=== PATIENT | male | born 1960 | race Caucasian/White ===

== ENCOUNTER → 2025-10-06 | Outpatient (CLI) | payer MEDICARE, SELFPAY ==
[2025-10-06 15:52] LABS: Hematocrit 43.8 % (40-54); Hemoglobin 14.6 g/dL (13.0-16.5); Immature Granulocytes Count 0.050 X10^3/uL (0.0-0.0); Mean Corp Hgb Conc 33.3 g/dL (32-36); Mean Corpuscular Volume 89.8 fL (80-94); Mean Platelet Vol. 10.6 fl (6.2-12.0); NRBC Flagged by Analyzer 0 % (0-5); Platelet Count 250 K/mm3 (150-450); RBC Distribution Width CV 12.9 % (11.6-14.6); RBC Distribution Width SD 42.8 fl (35.1-43.9); Red Blood Count 4.88 M/mm3 (4.6-6.2); White Blood Count 8.4 K/mm3 (4.4-11.0)
[2025-10-06 16:37] LABS: Anion Gap 9 (5-15); BUN 18 mg/dL (4-19); BUN/Creat Ratio 20.0 RATIO (10-20); Calcium,Total 9.5 mg/dL (7.6-11.0); Carbon Dioxide 26.2 mmol/L (21.0-32.0); Chloride 101 mmol/L (98-108); Glucose 128 mg/dL (70-99); Potassium 4.7 mmol/L (3.3-5.1); Pro- Brain NATRIURETIC PEPTIDE 101 pg/mL (<=900)
== END | disposition home or self-care (01) ==
PROVIDERS: Referring Provider Nurse Practitioner Gerontology; Visit Provider Nurse Practitioner Gerontology
DX: R06.02 Shortness of breath (principal); R53.83 Other fatigue
CPT/HCPCS: 36415; 80048; 83880; 84443; 85025

== ENCOUNTER → 2025-10-09 | Outpatient (CLI) | payer MEDICARE, SELFPAY ==
--- NOTE | 2025-10-09 06:30 | ECHOCS_ITS ---
Reason For Study Reason For Study: SOB Procedure This was a 2D Doppler, Color Flow transthoracic echocardiogram. Contrast injection was performed. Exam performed in department. Left Ventricle Normal size left ventricle. Left ventricular EF by Ramirez's biplane: 57%. Normal diastolic function. No regional wall motion abnormalities noted. Right Ventricle Normal right ventricle. Normal systolic function. Unable to estimate RV systolic pressure due to insufficient tricuspid regurgitant envelope. Atria The left and right atria are normal. Estimated RA pressure: 8 mmHg. Bubble contrast study is negative for PFO/ASD. Intact atrial septum. Mitral Valve Normal mitral valve. Trace mitral regurgitation. No mitral stenosis. Tricuspid Valve Normal tricuspid valve. No tricuspid stenosis. No tricuspid regurgitation. Aortic Valve Trileaflet aortic valve. No hemodynamically significant aortic stenosis. No aortic regurgitation. Pulmonic Valve Normal pulmonic valve. Trace pulmonic regurgitation. No pulmonic stenosis. Great Vessels Mildly dilated aortic root at 4.1 cm. Normal ascending aorta. Pericardium/Pleural No pericardial effusion. Epicardial fat. Medication Diluted definity 1ml given slow IV push to enhance endocardial definition. MMode/2D Measurements & Calculations LVIDd: 5.2 cm IVSd: 1.3 cm Ao root diam: 3.7 cm LVIDs: 3.7 cm LVPWd: 1.2 cm RVDd: 3.9 cm FS: 28.9 % LAV(MOD-bp): 48.5 ml LVAd ap4: 29.7 cm2 SV(MOD-sp4): 52.1 ml LAV(MOD-bp) Indexed: 19.6 ml/m2 LVLd ap4: 7.5 cm SI(MOD-sp4): 21.0 ml/m2 LAV(MOD-sp2): 39.4 ml EDV(MOD-sp4): 95.1 ml LAV(MOD-sp4): 56.7 ml EDV(sp4-el): 99.6 ml LVAs ap4: 18.1 cm2 LVLs ap4: 6.6 cm ESV(MOD-sp4): 43.0 ml ESV(sp4-el): 42.2 ml EF(MOD-sp4): 54.8 % EF(sp4-el): 57.7 % SV(sp4-el): 57.5 ml LA A4 area: 19.7 cm2 LA dimension(2D): 3.3 cm RA A4 area: 7.4 cm2 TAPSE: 2.4 cm Time Measurements MV dec time: 0.25 sec Doppler Measurements & Calculations MV E max louis: 87.0 cm/sec Lat Peak E' Louis: 7.8 cm/sec Med Peak E' Louis: 8.2 cm/sec MV A max louis: 91.4 cm/sec E/E' lat: 11.1 E/E' med: 10.6 MV E/A: 0.95 MV dec slope: 356.5 cm/sec2 Ao V2 max: 106.3 cm/sec LV V1 max: 89.8 cm/sec Ao max P.5 mmHg LV V1 max P.2 mmHg Ao V2 mean: 80.2 cm/sec Ao mean P.8 mmHg Ao V2 VTI: 23.2 cm PA V2 max: 96.4 cm/sec PI end-d louis: 133.8 cm/sec ECHO/Echo Complete W/ Contrast Interpretation Summary Normal left ventricular systolic function with EF by Ramirez's biplane: 57% Normal left ventricular diastolic function Normal right ventricular systolic function No hemodynamically significant valvular disease Mildly dilated aortic root at 4.1 cm Recommend routine surveillance echocardiogram of aortic root dilation in 1 year . Ordering Physician: Arcelia Puga Performed By: Tania Jones, RASHAAD, RVT
--- OUTSIDE RECORDS SUMMARY | 2025-10-09 06:50 | XMS RPT_ITS | CCD ---
Author Organization [facility] Care Team Providers Care Serologist Name Role Phone GINGERSIDNEYMARYKALEB Unavailable Unavailabl Yonatan Hall Unavailable Unavailable PROVIDER, UNKNOWN Unavailable Unavailable No, PCP Unavailable Unavailable Unavailable Primary Care Provider Unavailabl e Unavailable Primary Care Provider Unavailabl e Unavailable Primary Care Provider Unavailabl e Unavailable Primary Care Provider Unavailabl e JUDI HAY Referring Unavailabl e Unavailable Primary Care Provider Unavailabl e Care Physician, No Primary Primary Care Provider Unavailable Care Physician, No Primary Referring Provider Un available Satnam HVAC PROJECT MANAGER-CJudi Attending Provider Care Physician, No Primary Primary Care Unava ilable Care Physician, No Primary Referring Unava ilable Judi Hay Attending Unavailable Judi Hay Attending Unavailable Nic Lindsay Attending Unavailable Care Physician, No Primary Primary Care Unava ilable Care Physician, No Primary Referring Unava ilable Judi Hay Attending Unavailable JOSEPH, ARIANA Attending Unavailable JOSEPH, ARIANA Attending Unavailable ARIANA RUIZ Attending Unavailable JOSEPH, ARIANA Attending Unavailable TOMASA SALDAÑA Attending Unavailable RADU TAI Attending Unavailable Allergies Allergy Classification Reported Allergen(s) Allergy Type Date of Onset Reaction(s) Facility (14 sources) exenatide; Translations: [EXENATIDE MICROSPHERES] Drug Allergy 7 Itching [facility] Work Phone: (9 sources) Penicillins; Translations: [PENICILLINS] Drug Intolerance 1 Intolerance [facility] (14 sources) rosiglitazone; Translations: [ROSIGLITAZONE MALEATE] Drug Allergy 1 Other: See Comments [facility] (5 sources) Penicillins Drug Intolerance 1 Intolerance [facility] Medications Current Medications Medication Drug Class(es) Dates Sig (Normalized) Sig (Original) Blood-Glucose Meter misc (1 source) Start: 06-01-2022 Blood-Glucose Meter misc Active 0 .Route June 01, 2022 12:00am As directed Blood-Glucose Sensor (Freestyle Kyle 3 Sensor) device (2 sources) Start: 03-19-2023 Blood-Glucose Sensor (Freestyle Kyle 3 Sensor) device Active 0 .Route 1 0 March 19, 2023 9:33pm Diabetes mellitus intermediate project manager (current) use of insulin As directed Start: 09-13-2022 End: 03-19-2023 Blood-Glucose Sensor (Freest yle Kyle 3 Sensor) device Discontinued 0 .Route 2 September 13, 2022 1:00am March 19, 2023 9:33pm Diabetes mellitus halfway (current) use of insulin As directed calcium ascorbate 500 mg oral tablet (1 source) Start: 09-06-2022 take 1 tablet by mouth once daily Ascorbate Calcium (Vitamin C) 500 mg tablet Active 500 mg PO DAILY September 06, 2022 1:00am cholecalciferol 0.05 mg oral capsule (2 sources) Vitamin D Start: 09-06-2022 End: 08-01-2024 take 1 capsule by mouth once daily Cholecalciferol (Vitamin D3) 50 mcg (2,000 unit) capsule Active 50 ug PO daily 90 June 25, 2024 12:00am Vitamin D insufficiency Vitamin D deficiency, unspecified ciprofloxacin 3 mg/ml / dexamethasone 1 mg/ml otic suspension (1 source) Corticosteroid, Quinolone Antimicrobial Start: 07-01-2025 End: 07-08-2025 ciprofloxacin-dexAM ETHasone (CiproDEX) otic suspension Indications: Other infective acute otitis externa of right ear Administer 4 drops into affected ear(s) 2 times daily for 7 days. 7.5 mL 07/01/2025 07/08/2025 Active DULoxetine 20 mg delayed release oral capsule (1 source) Serotonin and Norepinephrine Reuptake Inhibitor Start: 03-23-2025 take 1 capsule by mouth twice daily Duloxetine 20 mg capsule,delayed release(DR/EC) Active 20 mg PO TWICE A DAY 60 5 March 23, 2025 12:00am Depression Depression, unspecified fenofibrate 160 mg oral tablet (19 sources) Peroxisome Proliferator Receptor alpha Agonist Start: 06-01-2022 End: 12-02-2024 take 1 tablet by mouth once daily Fenofibrate 160 mg tablet Active 160 mg PO DAILY 90 3 December 02, 2024 10:15am High blood cholesterol Pure hypercholesterolemi a, unspecified Start: 03-22-2021 End: 03-17-2022 Fenofibrate (LOFIBRA) 160 mg tablet Indications: Mixed hyperlipidemia TAKE 1 TABLET DAILY 90 tablet 3 03/17/2022 Active Comment on above: TAKE 1 TABLET DAILY lisinopril 20 mg oral tablet (6 sources) Angiotensin Converting Enzyme Inhibitor Start: End: take 1 tablet by mouth once daily Lisinopril 20 mg tablet Active 20 mg PO DAILY 90 3 April 20, 2025 8:14am 0.25 mg, 0.5 mg dose 1.5 ml semaglutide 1.34 mg/ml pen injector (5 sources) Start: Semaglutide (Ozempic) 0.25 mg or 0.5 mg(2 mg/1.5 mL) pen injector Active 0.25 mg SC EVERY WEEK June 03, 2025 4:40pm Start: 06-03-2025 End: 06-03-2025 Semaglutide (Ozempic) 0.25 m g or 0.5 mg(2 mg/1.5 mL) pen injector Discontinued 0.5 mg SC EVERY WEEK June 03, 2025 12:00am June 03, 2025 4:40pm Start: 06-05-2022 End: 09-06-2022 inject 0.25 mg by subcutaneous injection every week, then inject 0.5 mg by subcutaneous injection every week Semaglutide (Ozempic) 0.25 mg or 0.5 mg(2 mg/1.5 mL) pen injector Discontinued 0.5 mg SC EVERY WEEK 1.5 3 June 05, 2022 12:00am September 06, 2022 9:22am Diabetes mellitus intermediate project manager (current) use of insulin 0.25 mg x4 weeks for initiate titration. After 4 weeks, may increase to 0.5 mg subcutaneously once weekly. Start: 06-01-2022 End: 06-05-2022 Semaglutide (Ozempic) 0.25 m g or 0.5 mg(2 mg/1.5 mL) pen injector Discontinued 0.25 mg SC EVERY WEEK 4.5 1 June 01, 2022 3:24pm June 05, 2022 12:28pm Diabetes mellitus Type 2 diabetes mellitus without complications for 4 doses simvastatin 20 mg oral tablet (19 sources) HMG-CoA Reductase Inhibitor Start: 06-01-2022 End: 11-27-2024 take 1 tablet by mouth once daily in the evening Simvastatin 20 mg tablet Active 20 mg PO EVERY EVENING 90 November 27, 2024 9:34am High blood cholesterol Pure hypercholesterolemia, unspecified Start: 03-22-2021 End: 03-17-2022 simvastatin (ZOCOR) 20 mg ta blet Indications: Mixed hyperlipidemia TAKE 1 TABLET DAILY AT BEDTIME 90 tablet 3 03/17/2022 Active Comment on above: TAKE 1 TABLET DAILY AT BEDTIME 24 hr verapamil hydrochloride 240 mg extended release oral capsule (17 sources) Calcium Channel Matias Start: 12-24-2024 take 1 capsule by mouth once daily Verapamil 240 mg capsule,ext rel. pellets 24 hr Active 240 mg PO daily 90 December 24, 2024 5:41pm Start: 03-12-2023 verapamil SR ( CALAN SR) 240 mg CR tablet Indications: Hypertension TAKE 1 TABLET TWICE A DAY 180 tablet 3 03/12/2023 Active Start: 06-01-2022 End: 12-24-2024 take 1 capsule by mouth twice daily Verapamil 240 mg capsule,ext rel. pellets 24 hr Discontinued 240 mg PO TWICE A DAY 180 3 September 27, 2024 10:12pm December 24, 2024 5:42pm Start: 03-22-2021 End: 03-17-2022 verapamil SR (CALAN SR, ISOP TIN SR) 240 mg CR tablet Indications: Hypertension TAKE 1 TABLET TWICE A DAY 180 tablet 3 03/17/2022 Active Comment on above: TAKE 1 TABLET TWICE A DAY vitamin e 90 mg oral capsule (1 source) Start: 09-06-2022 take 1 capsule by mouth once daily Vitamin E (Dl, Acetate) 90 mg (200 unit) capsule Active 90 mg PO DAILY September 06, 2022 1:00am Completed/Discontinued Medications Medication Drug Class(es) Dates Sig (Normalized) Sig (Original) gabapentin 300 mg oral capsule (13 sources) Anti-epileptic Agent Start: 06-01-2022 End: 03-05-2024 take 1 capsule by mouth three times daily Gabapentin 300 mg capsule Discontinued 300 mg PO THREE TIMES A DAY June 01, 2022 12:00am March 05, 2024 9:43am Start: 03-23-2022 End: 06-21-2022 take 1 tablet by mouth three times daily gabapentin (NEURONTIN) 600 mg tablet Indications: Painful diabetic neuropathy (HCC) Take 1 tablet by mouth three times daily for 90 days. 270 tablet 0 03/23/2022 Active Start: 02-22-2021 End: 02-22-2022 gabapentin (NEURONTIN) 600 m g tablet Indications: Painful diabetic neuropathy (HCC) TAKE 1 TABLET THREE TIMES A DAY 270 tablet 3 02/22/2021 Active Comment on above: TAKE 1 TABLET THREE TIMES A DAY Take 1 tablet by mady th three times daily for 90 days. Insulin Degludec (Tresiba Flextouch U-200) 200 unit/mL (3 mL) insulin pen (1 source) Start: 12-21-2022 End: 12-22-2022 Insulin Degludec (Tresiba Flextouch U-200) 200 unit/mL (3 mL) insulin pen Discontinued 100 U SC DAILY 15 December 21, 2022 1:00am December 22, 2022 9:48am Diabetes mellitus halfway (current) use of insulin 3 ml insulin isophane, human 100 unt/ml pen injector (20 sources) Start: 11-15-2023 End: 01-02-2024 Insulin Nph Isoph U-100 Human (Humulin N Nph Insulin Kwikpen) 100 unit/mL (3 mL) insulin pen Discontinued 60 U SC TWICE A DAY 36 5 November 15, 2023 1:00am January 02, 2024 4:30pm Diabetes mellitus intermediate project manager (current) use of insulin Start: 11-02-2022 End: 01-02-2024 Insulin Nph Isoph U-100 Keeley n 100 unit/mL suspension Discontinued 60 U SC TWICE A DAY 108 March 12, 2023 9:58am January 02, 2024 4:30pm Diabetes mellitus halfway (current) use of insulin Start: 09-07-2022 End: 11-02-2022 Insulin Nph Isoph U-100 Keeley n 100 unit/mL suspension Discontinued 50 U SC TWICE A DAY 90 September 07, 2022 12:32pm November 02, 2022 8:47am Diabetes mellitus halfway (current) use of insulin Start: 06-01-2022 End: 09-07-2022 Insulin Nph Isoph U-100 Keeley n 100 unit/mL suspension Discontinued 25 U SC EVERY MORNING June 01, 2022 12:00am September 07, 2022 11:25am Start: 09-27-2021 End: 09-04-2022 inject 28 [IU] by subcutaneous injection at breakfast, then inject 50 [IU] by subcutaneous injection at bedtime insulin NPH injection (HumuLIN N,NovoLIN N) Indications: Type 2 diabetes mellitus with retinopathy, with long-term current use of insulin, macular edema presence unspecified, unspecified laterality, unspecified retinopathy severity (HCC) INJECT 28 UNITS UNDER THE SKIN AT BREAKFAST AND 50 UNITS AT BEDTIME 80 mL 0 09/04/2022 Active Comment on above: INJECT 28 UNITS UNDE R THE SKIN AT BREAKFAST AND 50 UNITS AT BEDTIME 3 ml insulin, regular, human 500 unt/ml pen injector (18 sources) Insulin Start: 01-02-2024 End: 12-24-2024 Insulin Regular Hum U-500 Conc (Humulin R U-500 (Conc) Kwikpen) 500 unit/mL (3 mL) insulin pen Discontinued 100 U SC THREE TIMES A DAY 18 January 02, 2024 12:00am December 24, 2024 1:50pm Diabetes mellitus intermediate project manager (current) use of insulin Start: 09-07-2022 End: 03-05-2024 Insulin Regular Human 100 un it/mL solution Discontinued 30 U SC THREE TIMES A DAY 81 1 November 02, 2022 8:47am March 05, 2024 9:44am Diabetes mellitus halfway (current) use of insulin Start: 06-01-2022 End: 09-07-2022 Insulin Regular Human 100 un it/mL solution Discontinued 18 U SC THREE TIMES A DAY June 01, 2022 12:00am September 07, 2022 11:25am 18 before breakfast, 12 at lunch, 20 at supper Start: 09-27-2021 insulin regula r human (HUMULIN R REGULAR U-100 INSULN) 100 unit/mL injection Indications: 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, with long-term current use of insulin, unspecified retinopathy severity (HCC) INJECT 20 UNITS UNDER THE SKIN BEFORE BREAKFAST, 15 UNITS AT LUNCH AND 20 UNITS AT SUPPER 50 mL 3 09/27/2021 Active Comment on above: INJECT 20 UNITS UNDE R THE SKIN BEFORE BREAKFAST, 15 UNITS AT LUNCH AND 20 UNITS AT SUPPER 24 hr metFORMIN hydrochloride 500 mg extended release oral tablet (15 sources) Biguanide Start: 2 End: 2 take 1 tablet by mouth twice daily Metformin 500 mg tablet extended release 24 hr Discontinued 500 mg PO TWICE A DAY June 01, 2022 12:00am June 07, 2022 4:06pm Start: 03-08-2021 End: 03-03-2022 metFORMIN ER (GLUCOPHAGE XR) 500 mg 24 hr tablet TAKE 2 TABLETS TWICE A DAY 360 tablet 3 03/03/2022 Active Comment on above: TAKE 2 TABLETS TWICE A DAY Multivitamin (Daily Multi-Vitamin) tablet (1 source) Start: 2 End: 3 Multivitamin (Daily Multi-Vitamin) tablet Discontinued 1 {tbl} PO DAILY September 06, 2022 1:00am December 14, 2022 9:24am sertraline 25 mg oral tablet (1 source) Serotonin Reuptake Inhibitor Start: 4 End: 5 take 1 tablet by mouth once daily Sertraline 25 mg tablet Discontinued 25 mg PO daily 20 03June 25, 2024 12:00am December 24, 2024 5:41pm Depression Depression, unspecified Problems Active Problems Problem Classification Problem Date Documented Date Episodic/Chronic Cataract (3 sources) Senile cataract; Translations: [Unspecified age-related cataract] 08-21-2023 Chronic Chronic ulcer of skin (1 source) Pressure ulcer of unspecified ankle, unspecified stage; Translations: [Controlled type 2 diabetes mellitus with pressure ulcer of ankle (HCC)] Onset: 09-10-2023 Chronic Diabetes mellitus with complications (20 sources) Type 2 diabetes mellitus; Translations: [Type 2 diabetes mellitus with unspecified diabetic retinopathy without macular edema] Onset: 08-22-2002 10-06-2018 Chronic Diabetes mellitus without complication (3 sources) Type 2 diabetes mellitus without complications; Translations: [Diabetes mellitus] Onset: 09-10-2023 06-01-2022 Chronic Disorders of lipid metabolism (16 sources) Mixed hyperlipidemia; Translations: [Mixed hyperlipidemia] Onset: 01-11-2011 01-11-2011 Chronic Essential hypertension (17 sources) Essential hypertension; Translations: [Essential (primary) hypertension] Onset: 01-11-2011 Resolved: 04-24-2016 11-19-2016 Chronic Mood disorders (1 source) Depressive disorder; Translations: [Depression] 07-11-2024 Chronic Mood disorders (1 source) Mood disorders; Translations: [Depression, unspecified] Onset: 06-24-2025 Nutritional deficiencies (2 sources) Vitamin D deficiency; Translations: [Vitamin D deficiency, unspecified] Onset: 06-24-2025 06-25-2024 Chronic Other aftercare (4 sources) halfway (current) use of insulin; Translations: [Type 2 diabetes mellitus with retinopathy and macular edema, with long-term current use of insulin, unspecified laterality, unspecified retinopathy severity (HCC)] Onset: 09-10-2023 Episodic Other ear and sense organ disorders (6 sources) Sensorineural hearing loss, bilateral; Translations: [Sensorineural hearing loss, bilateral] Onset: 02-04-2025 01-07-2025 Chronic Other ear and sense organ disorders (1 source) Hearing disorder; Translations: [Unspecified hearing loss, unspecified ear] 06-01-2022 Chronic Other ear and sense organ disorders (1 source) Sensorineural hearing loss, bilateral; Translations: [Sensorineural hearing loss, bilateral] Onset: 02-04-2025 Chronic Other ear and sense organ disorders (1 source) Impacted cerumen in right ear; Translations: [Impacted cerumen, right ear] 07-01-2025 Episodic Other ear and sense organ disorders (1 source) Acute infective otitis externa; Translations: [Other infective otitis externa, right ear] 07-01-2025 Episodic Other nutritional; endocrine; and metabolic disorders (13 sources) Obese class II; Translations: [Obesity, unspecified] Onset: 09-26-2021 09-26-2021 Chronic Other nutritional; endocrine; and metabolic disorders (2 sources) Obesity, unspecified; Translations: [Lifelong obesity] Onset: 09-10-2023 Chronic Other nutritional; endocrine; and metabolic disorders (1 source) Body mass index 30+ - obesity; Translations: [Obesity, unspecified] 06-01-2022 Chronic Retinal detachments; defects; vascular occlusion; and retinopathy (2 sources) History of occlusion of central retinal vein; Translations: [Central retinal vein occlusion, unspecified eye, stable] Onset: 03-20-2012 10-17-2021 Chronic Spondylosis; intervertebral disc disorders; other back problems (1 source) Back problem; Translations: [Dorsopathy, unspecified] 06-01-2022 Episodic Unclassified (2 sources) Audiology Services; Translations: [Audiology Services] Onset: 03-11-2025 Past or Other Problems Problem Classification Problem Date Documented Da te Episodic/Chronic Conditions associated with dizziness or vertigo (3 sources) Benign paroxysmal positional vertigo; Translations: [Benign paroxysmal vertigo, right ear] Onset: 01-07-2025 01-07-2025 Episodic Genitourinary symptoms and ill-defined conditions (13 sources) Microalbuminuria; Translations: [Proteinuria, unspecified] Onset: 11-11-2019 11-11-2019 Episodic Nonspecific chest pain (2 sources) Chest pain; Translations: [Chest pain, unspecified] Onset: 08-01-2024 06-25-2024 Episodic Other connective tissue disease (4 sources) Complete rotator cuff tear or rupture of left shoulder, not specified as traumatic; Translations: [Other shoulder lesions, left shoulder] Onset: 10-19-2017 Episodic Other nervous system disorders (12 sources) History of occlusion of central retinal vein; Translations: [Personal history of other diseases of the nervous system and sense organs] Onset: 03-20-2012 10-17-2021 Episodic Other non-traumatic joint disorders (1 source) Hip pain; Translations: [Pain in right hip] Onset: 04-23-2014 Resolved: 11-19-2016 11-19-2016 Episodic Other nutritional; endocrine; and metabolic disorders (4 sources) Body mass index 40+ - severely obese; Translations: [Morbid (severe) obesity due to excess calories] Onset: 03-25-2021 Resolved: 02-16-2022 03-25-2021 Chronic Results Test Name Value Interpretation Reference Range Facility Office Visiton 07-01-2025 Follow-up visit [id number] Ravi Lizarraga 1960 M Date Provider Department Center 07/01/2025 [facility] None No family history on file Level of Service:55657 UT OFFICE/OUTPATIENT NEW LOW MDM 30 MINUTES Reason for Visit and Comments: New Patient [542] - Right [facility] Progress Noteon 07-01-2025 Progress Note [facility] - [address] [facility] [address] Dept: [phone] Dept Loc: [phone] Assessment and Recommendations Edita was seen today for new patient. Diagnoses and all orders for this visit: Other infective acute otitis externa of right ear (Primary) - ciprofloxacin-dexAMETHasone (CiproDEX) otic suspension; Administer 4 drops into affected ear(s) 2 times daily for 7 days. Right ear impacted cerumen Right ear cerumen impaction successfully removed with instrumentation. Patient reported improvement in aural fullness and hearing. His right EAC appears irritated with bloody debris. Recommend treatment with Ciprodex and follow up if he develops any right ear symptoms. Continue to follow with audiology for management of hearing aids. Subjective: Patient: Edita Lizarraga is a 64 y.o. male HPI Edita Lizarraga is a 64 y.o. male who presents to clinic today for evaluation of right ear concerns. He was seen by audiology today for hearing aid maintenance and was noted to have abnormal findings in right EAC. He denies any ear pain or drainage but has sensation that right ear is plugged and his right sided hearing aid has not been working as well. No issues with the left ear. He denies any other concerns today. Review of Systems 14 point review of systems completed and all negative except as noted in HPI. Allergies[1] Current Medications[2] Medical History[3] Surgical History[4] Family History[5] Social History Tobacco Use Smoking status: Not on file Smokeless tobacco: Not on file Substance Use Topics Alcohol use: Not on file Objective: There were no vitals taken for this visit. Physical Exam General: Patient is not in acute distress. Appearance: Patient is well-developed. Eyes: Conjunctiva/sclera: Conjunctivae normal. Pupils: Pupils are equal, round, and reactive to light. HENT: Ears: Microscope brought in for exam. Bilateral external ears normal. Right EAC impacted with cerumen/bloody debris, unable to visualize TM. Left EAC normal, TM clear with normal middle ear landmarks. See procedure note below. Pulmonary: Effort: Pulmonary effort is normal. No respiratory distress. Breath sounds: No stridor. Musculoskeletal: Head: Normocephalic and atraumatic. Neck: Full passive range of motion without pain, neck supple. Skin: General: Skin is warm and dry. Findings: No erythema or rash. Neurological: Cranial Nerves: No cranial nerve deficit. Sensory: No sensory deficit. Coordination: Coordination normal. Extremities: No significant peripheral edema or varicosities Psychiatric: Mood and Affect: Mood and affect normal. Cognition and Memory: Cognition and memory normal. Procedure Note: Cerumen Removal Right tympanic membranes could not be visualized due to cerumen impaction. Verbal informed consent obtained from the patient to proceed with bedside cerumen disimpaction. The microscope was brought into the field for the procedure. The cerumen was removed from the right side using a looped curette as well as suction. Once the cerumen was removed the R TM was visualized and was normal. The right EAC was noted to have mild irritation and bloody debris. Patient tolerated the procedure well. [1] No Known Allergies [2] Current Outpatient Medications Medication Sig Dispense Refill ciprofloxacin-dexAMETHasone (CiproDEX) otic suspension Administer 4 drops into affected ear(s) 2 times daily for 7 days. 7.5 mL 0 No current facility-administered medications for this visit. [3] No past medical history on file. [4] No past surgical history on file. [5] No family history on file. Normal [facility] Progress Note HEARING AID CHECK/MA INTENANCE Name: Edita Lizarraga : 1960 Age: 64 y.o. Edita Lizarraga was seen in Audiology today for a hearing aid check/maintenance appointment. Programmed in [place] [address]. Hearing Aid Information: Right: Layla [email or web address] 12 HAZEL-RT SN: [id number] 4M immunology teacher 7mm open dome Left: Layla [email or web address] 12 HAZEL-RT SN: [id number] 4M immunology teacher 7mm open dome Basket Hand Braider: Standard 2.0 SN: [id number] Warranty: 05/05/2028 Chief Complaint: Right hearing aid is fading in/out and he has been struggling to hear lately. He also noticed some blood in his right ear. Visit Notes: Otoscopic Evaluation: External ear exam: Normal Internal ear exam: Right Ear: Abnormal red flesh like obstruction in external ear canal. Could not visualize tympanic membrane. Left Ear: Normal external ear canal. Tympanic membrane intact with normal landmarks. Recommended patient see an ENT provider, he was able to see PAXTON Jean, same day. See separate note for appointment details. Programming Ran self check and results showed the right immunology teacher failed and left microphone failed. Cleaned both hearing aids by replacing domes, filters, brushing/vacuuming microphone ports. Subjective listening check improved for the left hearing aid, no change in right hearing aid. Replaced right immunology teacher (under warranty) and hearing aid is now working. Ran self check again and all components passed. Reviewed brushing the microphones with patient (he was brushing the two side microphones but not the top one). I will keep him on our [place] list and let him know if/when we are scheduling other days to go out to the office. Recommendations: Follow up as needed. German Valverde, [place]-A Clinical Doctor of Audiology [facility] Endocrinology Visit Reporton 06-24-2025 Endocrinology Visit Report [facility] [address] [place] [address] OFFICE VISIT Date of Service: 06/24/25 MR#: [id number] Acct: [id number] Name: EDITA LIZARRAGA Rep #: [id number] : 1960 Provider: MELODIE claros Age/Sex: 64/M Location: [facility] Status: Signed Intake Vital Signs 12/24/24 11:43 06/24/25 11:42 Height 6 ft 6 ft Weight: 289 lb 291 lb BMI 39.2 39.4 BP 130/78 H 149/75 H Blood Pressure Location Lt brachial Lt brachial Position Sitting Sitting Pulse 84 80 Pulse Source Monitor Monitor Pulse Oximetry (%) 94 93 Oxygen Delivery Method room air room air Intake Visit Reasons: 6 M FU Chief Complaint: f/u diabetes [address] Required: No Accompanied by: Is patient in pain?: No Allergies No Known Drug Allergies Allergy (Verified 06/24/25 11:42) Other Medications ???Medication ???Instructions ???Recorded ???Confirmed ???Type blood-glucose meter 06/01/22 06/24/25 History insulin syr/ndl U100 half enoch 0.5 06/01/22 06/24/25 History mL 30 gauge x 5/16 insulin syringe-needle U-100 1 mL #150 ea 07/12/22 06/24/25 Rx 31 gauge x 5/16 (BD Insulin Syringe Ultra-Fine) blood sugar diagnostic (OneTouch #100 ea 08/03/22 06/24/25 Rx Verio test strips) ascorbate calcium (vitamin C) 500 500 mg PO DAILY 09/06/22 06/24/25 History mg tablet vitamin E (dl, acetate) 90 mg (200 90 mg PO DAILY 09/06/22 06/24/25 History unit) capsule blood-glucose sensor (FreeStyle #1 ea 03/19/23 06/24/25 Rx Kyle 3 Sensor device) cholecalciferol (vitamin D3) 50 50 mcg PO QDAY #90 caps 06/25/24 0 06/24/25 Rx mcg (2,000 unit) capsule simvastatin 20 mg tablet 20 mg PO QPM #90 tabs 11/27/2401/13 Rx fenofibrate 160 mg tablet 160 mg PO DAILY #90 tabs 12/02/24 06/24/25 Rx verapamil 240 mg 24 hr 240 mg PO QDAY #90 caps 12/24/24 0 06/24/25 Rx capsule,extended release duloxetine 20 mg capsule,delayed 20 mg PO BID #60 caps 03/23/2501/13 Rx release lisinopril 20 mg tablet 20 mg PO DAILY #90 tabs 04/20/25 0 06/24/25 Rx semaglutide 0.25 mg or 0.5 mg (2 0.25 mg subcut QWEEK 06/03/2501/13 History mg/1.5 mL) subcutaneous pen injector (Ozempic) Have you fallen in the past year?: No PFSH Medical History Depression Macular edema 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 Dry eye syndrome of both eyes Diabetic macular edema, both eyes High cholesterol High blood pressure Hearing problem Diabetes mellitus Cataract Back problem Surgical History History of shoulder surgery History of elbow surgery Previous back surgery Family History Father Hypertension Heart disease Myocardial infarction Social History Smoking Status: Former smoker alcohol intake: current substance use type: does not use caffeine: Yes frequency: daily HPI HPI Chief Complaint: f/u diabetes Details: EDITA LIZARRAGA, is a 64 M who presents to the office today for evaluation and management of diabetes. A1C today is 6.8%, consistent with 12/24/24. He has gained 2 lbs since that time- this is upsetting to him. Currently taking N 35 u QHS, Tresiba 44 u once daily, Novolog 35 u TIDCM, and Ozempic 0.5 mg qweek- tolerating well. CGM tracings reviewed- he is having occasional post meal elevations. He is having occasional lows between meals. He denies any significant episode of hypoglycemia that has required assistance from others. BP is controlled. Currently taking lisinopril 20 mg once daily and verapamil 240 mg once daily. He is taking a daily statin. He has chronic depression. He has been on multiple antidepressants without improvement in symptoms. He has retinopathy that is significantly impacting his quality of life, this is a big contributor to his depression. He is due for labs. Denies any acute concerns. ROS Const Constitutional: No fatigue, fever(s) or weight change Cardio Cardiology: No chest pain at rest, chest pain with exertion or shortness of breath Psych Psychiatric: No anxiety and Positive for depression Genitourinary Male: No difficulty urinating, urinary incontinence, urinary frequency, urinary urgency, urinary hesitancy or urinary retention Skin Skin: No rash Endo Endocrine: No fatigue or weight change Exam Const General: cooperative, healthy appearing, comfortable and no acute distress Nutritional Appearance: obese Orientation: alert, awake and oriented x3 HENMT Head: normal to inspection Ears: hearing grossly normal bilaterally Nose: stemhole borer and topper (more content not included)... Normal [facility] 37on 03-11-2025 37 Cawthorne Exercises These exercises are to be carried out for 15 minutes twice a day, increasing to 30 minutes. Master one task prior to moving to the next task. Eye Exercises: Look up, then down - at first slowly, then quickly - 20 times Look from one side to the other - at first slowly, then quickly - 20 times Focus on finger at arm's length moving one foot closer and back again - 20 times Head Exercises: Bend head forward, then backward with eyes open - slowly, later quickly - 20 times Turn head from one side to other side - slowly, then quickly - 20 times As dizziness decreases, these exercises should be done with eyes closed. Sitting: While sitting shrug shoulders - 20 times Turn shoulders to right, then to left - 20 times Bend forward and crab picker objects from ground and sit up - 20 times Standing: Change from sitting to standing and back again - 20 times with eyes open Repeat with eyes closed Throw a small rubber ball from hand to hand above eye level. Throw ball from hand to hand under one knee Moving About: Walk across room with eyes open, then closed - 10 times Walk up and down a slope with eyes open, then closed - 10 times Walk up and down steps with eyes open, then closed - 10 times Any game involving stooping, stretching, and turning (ex: bowling, basketball) is good Note: The earlier and more regularly these exercises are practiced, the faster and more likely complete the recovery. References Denise ORELLANA. The rationale and technique of head exercises in the treatment of vertigo. Acta Otorhinolaryngol [place]. 1979;3(3):370-84. Marc MCKNIGHT. Canalith repositioning maneuver. Otolaryngol Head Neck Surg. 1994;111(5):691-692. [facility] Progress Noteon 03-11-2025 Progress Note HEARING AID CHECK/MA INTENANCE Name: Edita Lizarraga : 1960 Age: 64 y.o. Edita Lizarraga was seen in Audiology today for a hearing aid check/maintenance appointment. Hearing Aid Information: Right: Layla Prajapati AI 12 HAZEL-RT SN: [id number] 4M immunology teacher 7 mm open dome Left: Layla Prajapati AI 12 HAZEL-RT SN: [id number] 4M immunology teacher 7 mm open dome Basket Hand Braider: [employer] Basket Hand Braider 2.0 SN: [id number] Warranty: 05/05/2028 Programmed: [facility] CHIEF COMPLAINT: No main concerns VISIT NOTES: He is happy with the devices and the sound quality. He states he is hearing things that he hasn't in some time and that he is doing well with them. Demonstrated how to change wax guards and domes to patient and his . Due to vision concerns, recommended for him to follow up routinely for maintenance and we can change the wax guards/domes in office. Provided them with extra supplies to have at home should they need to change them. He is still experiencing some issues with dizziness, particularly when laying down flat. Provided him with Cawthorne exercises for him to try at home. Recommended referral for vestibular therapy and/or VNG testing but he is not interested in that at this time. He will be sent some resources for him to try at home to help with the dizziness. RECOMMENDATIONS: Follow up in 3-4 months for routine maintenance or sooner if needed. He will be contacted to set up that appointment once days in [facility] have been established. Kirt Maravilla. [place]ilda, - Clinical Doctor of Audiology Board Certified, Tinnitus Management [facility] 36on 02-25-2025 36 . [facility] Progress Noteon 02-18-2025 Progress Note HEARING AID FITTING Edita Lizarraga was seen today to be fit with new hearing aid(s). DEVICE INFORMATION: Hearing Aid Information: Right: Layla Victorina AI 12 HAZEL-RT SN: [id number] 4M immunology teacher 7 mm open dome Left: Layla Victorina AI 12 HAZEL-RT SN: [id number] 4M immunology teacher 7 mm open dome Basket Hand Braider: [employer] Basket Hand Braider 2.0 SN: [id number] Warranty: 05/05/2028 Programmed: [facility] TRIAL PERIOD END DATE: 04/20/2025 FITTING AND FINE TUNING: Initial physical fit was good bilaterally. Aid(s) were not verified via real ear speechmapping measures using the prescriptive fitting formula. Set to experience level #3. Increased overall gain by 1 click and then decreased low frequency gain by 3 clicks due to report that his own voice was too echoy. Programs created and explained when and how to utilize: Normal RiGHT [employer]RA[employer]N MED[employer]A Manual controls were set for on board use of volume/program changes: RIGHT: volume control LEFT: program control Edita Lizarraga was pleased with the sound quality of the aids following programming adjustments. COUNSELING/EDUCATION: Mr. Lizarraga was educated on care and use of aid(s) and the 3 years loss and damage warranty and 3 years periodicals library assistant repair warranty. He was given appropriate cleaning tools and education manual/s provided by the periodicals library assistant. Edita Lizarraga was able to demonstrate proper insertion/removal of hearing aid(s), insertion/removal of the battery OR insertion/removal from flight engineer performance qualified, cleaning techniques, and use of VC &/or program button . Devices were successfully to connected Edita Lizarraga Bluetooth enabled device ([employer]). [employer] antolin was downloaded and hearing aid(s) were successfully paired. Reviewed use of antolin for volume/program changes and streaming capabilities. Provided patient with periodicals library assistant's technical support number to contact if any issues arise. Realistic expectations and effective communication strategies were reviewed. Xosw-fs-vusy at a 4-6 foot maximum distance Reduced background noise Speech at normal volume and slower rate Good lighting IMPRESSIONS/RECOMMENDATIONS: Edita Lizarraga expressed understanding to all topics discussed and reported good fit and sound quality to devices. Edita Lizarraga was schedule for a follow up appointment in 3 weeks but was instructed to call/return sooner if needed. Patient paid remaining balance of $1390.00 today. Kirt Maravilla. [place]-Nilda, -TM Clinical Doctor of Audiology Board Certified, Tinnitus Management [facility] 01-29-2025 36 Sent Work [employer] message to schedule appt in [facility] on the . [facility] 01-27-2025 36 Name of Caller: Earl robles Contact Reason for Appointment: Pt states he would like to be seen sooner then his appt. Please advise. Office Name: Ent [facility] 01-07-2025 37 The below company(ie s) are credentialed through various insurance plans to provide hearing aids for patients. Please contact the number(s) below if interested in pursuing hearing aids to determine if they are in network with your insurance. 1. [employer] [place] - Dr. Gary Joyce Location: [address] [place] [address], [address] [place], [place] [id number] [facility] Location: [address] [place] [id number] Hearing aid services are offered at [facility] although we are not credentialed to bill insurance for hearing aids. Hearing aids and services are only billable to the patient. Audiologists at [facility] are available to answer any questions at [phone], option 5. Benign paroxysmal positional vertigo (BPPV) is the most common disorder of the inner ear?s vestibular system, which is a vital part of maintaining balance. BPPV is benign, meaning that it is not life-threatening nor generally progressive. BPPV produces a sensation of spinning called vertigo that is both paroxysmal and positional, meaning it occurs suddenly and with a change in head position. Why does BPPV cause vertigo? The vestibular organs in each ear include the utricle, saccule, and three semicircular canals. The semicircular canals detect rotational movement. They are located at right angles to each other and are filled with a fluid called endolymph. When the head rotates, endolymphatic fluid lags behind because of inertia and exerts pressure against the cupula, the sensory receptor at the base of the canal. The receptor then sends impulses to the brain about the head?s movement. BPPV occurs as a result of otoconia, tiny crystals of calcium carbonate that are a normal part of the inner ear?s anatomy, detaching from the otolithic membrane in the utricle and collecting in one of the semicircular canals. When the head is still, gravity causes the otoconia to clump and settle. When the head moves, the otoconia shift. This stimulates the cupula to send false signals to the brain, producing vertigo and triggering nystagmus (involuntary eye movements). Symptoms In addition to vertigo, symptoms of BPPV include dizziness (lightheadedness), imbalance, difficulty concentrating, and nausea. Activities that bring on symptoms can vary in each person, but symptoms are precipitated by changing the head?s position with respect to gravity. With the involvement of the posterior semicircular canal in classic BPPV, common problematic head movements include looking up, or rolling over and getting out of bed. BPPV may be experienced for a very short duration or it may last a lifetime, with symptoms occurring in an intermittent pattern that varies by duration, frequency, and intensity. It is not considered to be intrinsically lifethreatening. However, it can be tremendously disruptive to a person?s work and social life, as well as pose a health hazard due to an increased risk of falls associated with dizziness and imbalance. Causes BPPV is the most common vestibular disorder; 2.4% of all people will experience it at some point in their lifetimes BPPV accounts for at least 20% of diagnoses made by physicians who specialize in dizziness and vestibular disorders, and is the cause of approximately 50% of dizziness in older people. The most common cause of BPPV in people under age 50 is head injury and is presumably a result of concussive force that displaces the otoconia. In people over age 50, BPPV is most commonly idiopathic, meaning it occurs for no known reason, but is generally associated with natural age-related degeneration of the otolithic membrane. BPPV is also associated with migraine and ototoxicity. Viruses affecting the ear (such as those causing vestibular neuritis) and M?ni?re?s disease are significant but unusual causes. Occasionally BPPV follows surgery as a result of the trauma on the inner ear during the procedure combined with a prolonged supine (laying down face-up) position. BPPV may also develop after long periods of inactivity. Diagnosis BPPV is diagnosed based on medical history, physical examination, the results of vestibular and auditory (hearing) tests, and possibly lab work to rule out other diagnoses. Vestibular tests include the Denise-Hallpike maneuver and the Supine Roll test. These tests allow the provider to observe the nystagmus elicited in response to a change in head position. The problematic semicircular canal can be identified based on the characteristics of the observed nystagmus. A physician may also order radiographic imaging such as a magnetic resonance imaging scan (MRI) to rule out other problems such as a stroke or brain tumor, but such scansare not helpful is in diagnosing BPPV. Treating BPPV with in-office particle repositioning head maneuvers Recommended treatment for most forms of BPPV employs particle repositioning head karly (more content not included)... Normal [facility] Endocrinology Visit Reporton 12-24-2024 Endocrinology Visit Report [facility] [address] [place] [address] OFFICE VISIT Date of Service: 12/24/24 MR#: [id number] Acct: [id number] Name: EDITA LIZARRAGA Rep #: [id number] : 1960 Provider: MELODIE claros Age/Sex: 64/M Location: [facility] Status: Signed Intake Vital Signs 06/25/24 09:00 08/01/24 09:40 12/24/24 11:43 Height 6 ft 6 ft 6 ft Weight: 294 lb 289 lb BMI 39.9 39.2 BP 146/81 H 130/78 H Blood Pressure Location Lt brachial Lt brachial Position Sitting Sitting Pulse 88 84 Pulse Source Monitor Monitor Pulse Oximetry (%) 95 94 Oxygen Delivery Method room air room air Intake Visit Reasons: 6 M FU Chief Complaint: f/u diabetes [address] Required: No Accompanied by: Is patient in pain?: No Allergies No Known Drug Allergies Allergy (Verified 12/24/24 11:55) Other Medications ???Medication ???Instructions ???Recorded ???Confirmed ???Type blood-glucose meter 06/01/22 12/24/24 History insulin syr/ndl U100 half enoch 0.5 06/01/22 12/24/24 History mL 30 gauge x 5/16 insulin syringe-needle U-100 1 mL #150 ea 07/12/22 12/24/24 Rx 31 gauge x 5/16 (BD Insulin Syringe Ultra-Fine) blood sugar diagnostic (OneTouch #100 ea 08/03/22 12/24/24 Rx Verio test strips) ascorbate calcium (vitamin C) 500 500 mg PO DAILY 09/06/22 12/24/24 History mg tablet vitamin E (dl, acetate) 90 mg (200 90 mg PO DAILY 09/06/22 12/24/24 History unit) capsule blood-glucose sensor (FreeStyle #1 ea 03/19/23 12/24/24 Rx Kyle 3 Sensor device) lisinopril 20 mg tablet 20 mg PO DAILY #90 tabs 05/03/24 0 12/24/24 Rx cholecalciferol (vitamin D3) 50 50 mcg PO QDAY #90 caps 06/25/24 0 12/24/24 Rx mcg (2,000 unit) capsule simvastatin 20 mg tablet 20 mg PO QPM #90 tabs 11/27/2403/15 Rx fenofibrate 160 mg tablet 160 mg PO DAILY #90 tabs 12/02/24 12/24/24 Rx verapamil 240 mg 24 hr 240 mg PO QDAY #90 caps 12/24/24 0 12/24/24 Rx capsule,extended release Have you fallen in the past year?: No PFSH Medical History Depression Macular edema 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 Dry eye syndrome of both eyes Diabetic macular edema, both eyes High cholesterol High blood pressure Hearing problem Diabetes mellitus Cataract Back problem Surgical History History of shoulder surgery History of elbow surgery Previous back surgery Family History Father Hypertension Heart disease Myocardial infarction Social History Smoking Status: Former smoker alcohol intake: current substance use type: does not use caffeine: Yes frequency: daily HPI HPI Chief Complaint: f/u diabetes Details: EDITA LIZARRAGA, is a 64 M who presents to the office today for evaluation and management of diabetes. A1C today is 6.7%, improved from 06/25/24 at 7.3%. He has lost 5 lbs since that time. Currently taking Tresiba 46 u once daily, Novolog 20-25 u TIDCM, N 35 u QHS, and Ozempic 0.25 mg qweek- tolerating well. Ozempic was increased to 0.5 mg qweek and he was uanble to tolerate. CGM tracings reviewed- he is having occasional post meal elevations. He denies any significant episode of hypoglycemia that has required assistance from others. BP is controlled. Currently taking lisinopril 20 mg once daily and verapamil ER 240 mg once daily. He takes a daily statin. Labs recently updated and unremarkable. He was placed on sertraline 25 mg once daily this past fall, he did not feel like it was helpful for mood and it made him feel poorly, he since discontinued use. He is getting injections in his eyes, they help temporarily. This is discouraging to him. Denies any acute concerns. ROS Const Constitutional: Positive for weight change (intentional loss); No fatigue or weakness Eyes Eyes: Positive for blurry vision (chronic) Cardio Cardiology: No chest pain at rest, chest pain with exertion or shortness of breath Musc Musculoskeletal: No numbness Neuro Neurology: No weakness or numbness Psych Psychiatric: Positive for irritability Skin Skin: No wounds Endo Endocrine: Positive for weight change (intentional loss); No fatigue Exam Const General: cooperative, healthy appearing, comfortable and no acute distress Nutritional Appearance: obese Orientation: alert, awake and oriented x3 HENMT Head: normal to inspection Ears: hearing grossly normal bilaterally Nose: external nose normal Face and sinus: normal facial exam Eyes General: appearance normal, both eyes and all re (more content not included)... Normal [facility] 36on 12-22-2024 36 Rescheduled for [facility] on 12-19-2024 36 Name of Caller: Earl travis Contact Reason for Appointment: Patient called back in stating he just scheduled an appointment but wanted to see if he was able to schedule with SHAKIR Ruiz as he has a friend that sees her and highly recommended her stating he just needs to be seen for gradual hearing problems due to age. Please be advised Office Name: [facility] 12 Lead EKG performed by [facility] on 08-01-2024 12 Lead EKG performed by [facility] [address] [place] [address] 12 Lead EKG performed by [facility] 08/01/24 0807 MR#: [id number] Acct: [id number] Name: AUBREYEDITA Rep #: [id number] : 1960 63 From: Nic Lindsay MD Attending Dr: Dr. Nic Lindsay MD Status: DE P LIBRADO Ordering Dr: Nic Lindsay MD Date: 08/01/24 Location: [facility] Sex: M C Admitted: [facility]/12 Lead EKG performed by [facility] ECG Report Interpretation Sin us Rhythm - Nonspecific T-abnormality. ABNORMAL Electronically signed on 08/01/2024 at 10:[address] Nic Lindsay [employer] Version [id number] 08/01/24 1034 Date Nic Lindsay MD CC: Date Dictated: 08/01/24806 Date Transcribed: 08/01/24806 Die Finisher: Signed Normal [facility] Cardiology Visit Reporton Cardiology Visit Report [facility] [address] [place] [address] OFFICE VISIT Date of Service: 08/01/24 MR#: [id number] Acct: [id number] Name: EDITA LIZARRAGA Rep #: [id number] : 1960 Provider: Dr. Nic arenas MD Age/Sex: 63/M Location: [facility] Status: Signed with Addenda ADDENDUM by Dr. Nic Lindsay MD on 08/01/24 at 1028 HPI History of Present Illness Details: ECG done in office today showed sinus rhythm with minor nonspecific T wave changes and is unchanged from an old EKG October 2017. Assessment and Plan Assessment and Plan (1) Chest pain: Status: Chronic Qualifiers: Chest pain type: unspecified Qualified Code(s): R07.9 - Chest pain, unspecified (2) Obesity (BMI 30-39.9): Status: Chronic (3) High cholesterol: Status: Chronic (4) High blood pressure: Status: Chronic Qualifiers: Hypertension type: unspecified Qualified Code(s): I10 - Essential (primary) hypertension (5) Diabetes mellitus: Status: Chronic Qualifiers: Diabetes mellitus type: type 2 Diabetes mellitus detention insulin use: with detention use Diabetes mellitus complication status: with ophthalmic complications Diabetes mellitus complication detail: with diabetic retinopathy Diabetic retinopathy severity: with unspecified retinopathy severity Diabetes mellitus macular edema: with macular edema Laterality: unspecified laterality Qualified Code(s): E11.311 - Type 2 diabetes mellitus with unspecified diabetic retinopathy with macular edema; Z79.4 - halfway (current) use of insulin Orders: Orders 12 Lead EKG performed by [facility] Today R07.9 - Chest pain, unspecified Plan Details Follow Up: 3 Years (As needed) 08/01/24 1028 Date Nic Lindsay MD cc: MELODIE [place] * Signed HPI HPI History of Present Illness Details: Patient comes in today for new patient visit for chest pain. He is a 63-year-old white male he carries a history of diabetes and hypertension. The patient reports that several weeks ago he was receiving an injection into his eye and he had a reaction to it where he broke out in a rash on both of his arms just felt terrible all over and deve loped some chest tightness with it. It got a little better over a 6-week time. And at 8 weeks he had another shot and the same thing occurred even more intense. Since that time his caustic strength inspector has changed his injection and he has not had any more of those symptoms or reactions. The patient has a history of a negative stress test back in October 2017 when he was hospitalized at [facility] with a diaphoretic spell. The patient is active in his home environment he works around on the yard he is up and about taking care of several acres of land he is limited by his orthopedic issues with his knees. He denies any PND orthopnea he denies any lower extremity edema he denies any change in his exercise tolerance since he got off the injection that was given him all the side effects. He is now back to his regular activity levels without any significant restrictions other than his orthopedic issues. The patient is on lipid therapy his blood pressure is well-controlled his hemoglobin A1c is 7.1. Patient does have a family history of heart disease. He is a remote smoker. Intake Vital Signs 06/25/24 09:00 08/01/24 09:40 Height 6 ft 6 ft Weight: 294 lb 295 lb BMI 39.9 40.0 BP 146/81 H 130/75 H Blood Pressure Location Lt brachial Lt brachial Position Sitting Sitting Respiration 18 Pulse 88 74 Pulse Source Monitor Monitor Pulse Oximetry (%) 95 94 Oxygen Delivery Method room air room air Intake Visit Reasons: JANE ([place]) [address] Required: No Accompanied by: Is patient in pain?: No Allergies No Known Drug Allergies Allergy (Verified 08/01/24 09:40) Other Medications ???Medication ???Instructions ???Recorded ???Confirmed ???Type blood-glucose meter 06/01/22 06/25/24 History insulin syr/ndl U100 half enoch 0.5 06/01/22 06/25/24 History mL 30 gauge x 5/16 verapamil 240 mg 24 hr 240 mg PO BID 06/01/22 08/01/24 History capsule,extended release insulin syringe-needle U-100 1 mL #150 ea 07/12/22 06/25/24 Rx 31 gauge x 5/16 (BD Insulin Syringe Ultra-Fine) blood sugar diagnostic (OneTouch #100 ea 08/03/22 06/25/24 Rx Verio test strips) ascorbate calcium (vitamin C) 500 500 mg PO DAILY 09/06/22 08/01/24 History mg tablet vitamin E (dl, acetate) 90 mg (200 90 mg PO DAILY 09/06/22 08/01/24 History unit) capsule blood-glucose sensor (FreeStyle #1 ea 03/19/23 06/25/24 Rx Kyle 3 Sensor device) fenofibrate 160 mg tablet 160 mg PO DAILY #90 tabs 12/03/23 08/01/24 Rx simvastatin 20 mg tablet 20 mg PO QPM #90 tabs 12/03/23 08/01/24 Rx i (more content not included)... Normal [facility] Endocrinology Visit Reporton 06-25-2024 Endocrinology Visit Report [facility] [address] [place] [address]. [address] [place] [address] OFFICE VISIT Date of Service: 06/25/24 MR#: [id number] Acct: [id number] Name: EDITA LIZARRAGA Rep #: [id number] : 1960 Provider: MELODIE claros Age/Sex: 63/M Location: [facility] Status: Signed Intake Vital Signs 03/05/24 09:47 06/25/24 09:00 Height 6 ft 6 ft Weight: 294 lb BMI 39.9 BP 146/81 H Blood Pressure Location Lt brachial Position Sitting Pulse 88 Pulse Source Monitor Pulse Oximetry (%) 95 Oxygen Delivery Method room air Intake Visit Reasons: 4 M FU Chief Complaint: f/u diabetes [address] Required: No Is patient in pain?: No Allergies No Known Drug Allergies Allergy (Verified 06/25/24 09:06) Other Medications ???Medication ???Instructions ???Recorded ???Confirmed ???Type blood-glucose meter 06/01/22 06/25/24 History insulin syr/ndl U100 half enoch 0.5 06/01/22 06/25/24 History mL 30 gauge x 5/16 verapamil 240 mg 24 hr 240 mg PO BID 06/01/22 06/25/24 History capsule,extended release insulin syringe-needle U-100 1 mL #150 ea 07/12/22 06/25/24 Rx 31 gauge x 5/16 (BD Insulin Syringe Ultra-Fine) blood sugar diagnostic (OneTouch #100 ea 08/03/22 06/25/24 Rx Verio test strips) ascorbate calcium (vitamin C) 500 500 mg PO DAILY 09/06/22 06/25/24 History mg tablet cholecalciferol (vitamin D3) 50 50 mcg PO DAILY 09/06/22 06/25/24 History mcg (2,000 unit) capsule vitamin E (dl, acetate) 90 mg (200 90 mg PO DAILY 09/06/22 06/25/24 History unit) capsule blood-glucose sensor (FreeStyle #1 ea 03/19/23 06/25/24 Rx Kyle 3 Sensor device) fenofibrate 160 mg tablet 160 mg PO DAILY #90 tabs 12/03/23 06/25/24 Rx simvastatin 20 mg tablet 20 mg PO QPM #90 tabs 12/03/23 06/25/24 Rx insulin regular hum U-500 conc 500 100 unit (0.2 mL) subcut TID #18 mL 01/02/24 06/25/24 Rx unit/mL(3 mL) subcut pen (Humulin R U-500 (Conc) Insulin Kwikpen) lisinopril 20 mg tablet 20 mg PO DAILY #90 tabs 05/03/24 06/25/24 Rx cholecalciferol (vitamin D3) 50 50 mcg PO QDAY #90 caps 06/25/24 06/25/24 Rx mcg (2,000 unit) capsule sertraline 25 mg tablet 25 mg PO QDAY #30 tabs 06/25/24 06/25/24 Rx Have you fallen in the past year?: No PFSH Medical History 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 Dry eye syndrome of both eyes Diabetic macular edema, both eyes High cholesterol High blood pressure Hearing problem Diabetes mellitus Cataract Back problem Surgical History History of shoulder surgery History of elbow surgery Previous back surgery Family History Mother Heart disease Myocardial infarction Hypertension Social History Smoking Status: Former smoker alcohol intake: never substance use type: does not use frequency: daily HPI HPI Chief Complaint: f/u diabetes Details: EDITA LIZARRAGA, is a 63 M who presents to the office today for evaluation and management of diabetes A1C today is 7.3%, consistent with 03/05/24 at 7.2%. He has gained an additional 4 lbs. This weight is upsetting to him. Currently taking Tresiba 75 u once daily, Novolog 30-35 u TIDCM depending on carb serving, and N 35 u QHS. CGM tracings reviewed- he is having occasional post meal elevations. His diet contains a fair amount of processed carbohydrates. Denies any significant episode of hypoglycemia that has required assistance from others. Over the last 4 months he has been receiving Eleya injections for macular edema. Since that time he reports overall he has been feeling unwell. Additionally, he denies any improvement in vision. He reports chest tightness that is associated with shortness of breath. I feel like my heart is going to blow out of my chest. Symptoms occur at rest or with physical exertion. Additionally he reports increase in fatigue with occasional COYLE and dizziness. He denies any dependent edema or orthopnea. He smoked in remote past, approximately 40 years ago. His father had CAD with multiple TN's. He reports significant stress and irritability as well as depression. He reports at time CP can be associated with increase in stressors. Denies any suicidal or homicidal ideation. Labs updated 06/21/24: B12 584 GFR 102 creatinine 0.71 ferritin 340 total cholesterol 126 LDL 74 TSH 2.1 - microalbuminuria hbg 12.5 vitamin D28.3 Calculated STOP-BANG score= 7 High risk for moderate to severe RAKAN ROS Const Constitutional: Positive for fatigue, headache(s), decreased energy and weakness Eyes Eyes: Positive fo (more content not included)... Normal [facility] 25(OH)D3 SerPl-ncon 2023 25-hydroxyvitamin D3 [Mass/Vol] 28.3 ng/mL Low >=30.0 [facility] Comment on above: Order Comment: Olesyai sergei Type: BLOOD SPECIMEN Ordering Facility: External Submitter Address: , , Result Comment: Clas sification of 25 [place] Vitamin D status: Deficiency: <= 20.0 ng/ml. Insufficiency: 21.0-29.0 ng/ml. Sufficiency: >= 30.0 ng/ml. Performed By: #### 1 989-3 #### [facility] CLIA [id number] [address] [place] [address] ALBUMIN/CREATININE RATIO, UR INEon 06-21-2024 Albumin Unsp time DL <= 20 mg/L (U) [Mass/Time] <12.0 Normal [facility] Comment on above: Order Comment: Speci men Type: URINE SPECIMEN Ordering Facility: External Submitter Address: , , Performed By: #### U ACR #### [facility] CLIA [id number] [address] Albumin/Creatinin e (U) [Mass ratio] <27 Normal <30 [facility] Comment on above: Order Comment: [facility] Type: URINE SPECIMEN Ordering Facility: External Submitter Address: , , Result Comment: Adul t Male and Female Nephrotic Criteria: <30 mg/g is considered normal to mildly increased 30-300 mg/g is considered moderately increased >300 mg/g is considered severely increased KDIGO. (2013). KDIGO 2012 Clinical Practice Guideline for the Evaluation and Management of Chronic Kidney Disease. Official Journal of the International Society of Nephrology, 3(1), 1-150. Performed By: #### U ACR #### [facility] CLIA [id number] [address] OF [facility] Creatinine (U) [Mass/Vol] 43.7 mg/dL Low 46.8-314.5 [facility] Comment on above: Order Comment: Speci men Type: URINE SPECIMEN Ordering Facility: External Submitter Address: , , Performed By: #### U ACR #### [facility] CLIA [id number] [address] CBC W Auto Differential pane l (Bld)on 06-21-2024 Basophils (Bld) [#/Vol] 10*3/uL Normal <0.11 [facility] Comment on above: Order Comment: Speci men Type: URINE SPECIMEN Ordering Facility: [facility] Address: [address] [place] [address] Performed By: #### U ACR #### [facility] CLIA [id number] [address] Basophils/100 WBC (Bld) 0.1 % Normal [facility] Comment on above: Order Comment: Speci men Type: URINE SPECIMEN Ordering Facility: [facility] Address: [address] [place] [address] Performed By: #### U ACR #### [facility] CLIA [id number] [address] [place] [address] Differential cell count method Nom (Bld) Auto Normal [facility] Comment on above: Order Comment: Speci men Type: URINE SPECIMEN Ordering Facility: [facility] Address: [address] [place] [address] Performed By: #### U ACR #### [facility] CLIA [id number] [address] [place] Eosinophils (Bld) [#/Vol] 0.16 10*3/uL Normal <0.46 [facility] Comment on above: Order Comment: Speci men Type: URINE SPECIMEN Ordering Facility: [facility] Address: [address] [place] [address] Performed By: #### U ACR #### [facility] CLIA [id number] [address] Eosinophils/100 WBC (Bld) 2.2 % Normal [facility] Comment on above: Order Comment: Speci men Type: URINE SPECIMEN Ordering Facility: [facility] Address: [address] [place] [address] Performed By: #### U ACR #### [facility] CLIA [id number] [address] Erythrocyte distribution width (RBC) [Ratio] 13.3 % Normal 11.5-15.0 [facility] Comment on above: Order Comment: Speci men Type: URINE SPECIMEN Ordering Facility: [facility] Address: [address] [place] [address] Performed By: #### U ACR #### [facility] CLIA [id number] [address] OF [facility] Hematocrit (Bld) [Volume fraction] 48.0 % Normal 39.0-51.0 [facility] Comment on above: Order Comment: Speci men Type: URINE SPECIMEN Ordering Facility: [facility] Address: [address] [place] [address] Performed By: #### U ACR #### [facility] CLIA [id number] [address] [place] [address] [place] Hemoglobin (Bld) [Mass/Vol] 15.2 g/dL Normal 13.0-17.0 [facility] Comment on above: Order Comment: Speci men Type: URINE SPECIMEN Ordering Facility: [facility] Address: [address] [place] [address] Performed By: #### U ACR #### [facility] CLIA [id number] [address] [place] [address] Immature granulocytes (Bld) [#/Vol] 0.07 10*3/uL Normal <0.10 [facility] Comment on above: Order Comment: Speci men Type: URINE SPECIMEN Ordering Facility: [facility] Address: [address] [place] [address] Performed By: #### U ACR #### [facility] CLIA [id number] [address] [place] [address] [place] Immature granulocytes/100 WBC (Bld) 1.0 % Normal [facility] Comment on above: Order Comment: Speci men Type: URINE SPECIMEN Ordering Facility: [facility] Address: [address] [place] [address] Performed By: #### U ACR #### [facility] CLIA [id number] [address] Lymphocytes (Bld) [#/Vol] 2.40 10*3/uL Normal 1.00-4.00 [facility] Comment on above: Order Comment: Speci men Type: URINE SPECIMEN Ordering Facility: [facility] Address: [facility] [place] [address] Performed By: #### U ACR #### [facility] CLIA [id number] [address] Lymphocytes/100 WBC (Bld) 33.3 % Normal [facility] Comment on above: Order Comment: Speci men Type: URINE SPECIMEN Ordering Facility: [facility] Address: [facility] [place] [address] Performed By: #### U ACR #### [facility] CLIA [id number] [address] MCH (RBC) [Entitic mass] 29.3 pg Normal 26.0-34.0 [facility] Comment on above: Order Comment: Speci men Type: URINE SPECIMEN Ordering Facility: [facility] Address: [facility] [place] [address] Performed By: #### U ACR #### [facility] CLIA [id number] [address] MCHC (RBC) [Mass/Vol] 31.7 g/dL Normal 30.5-36.0 [facility] Comment on above: Order Comment: Speci men Type: URINE SPECIMEN Ordering Facility: [facility] Address: [address] [place] [address] Performed By: #### U ACR #### [facility] CLIA [id number] [address] MCV (RBC) [Entitic vol] 92.7 fL Normal 80.0-100.0 [facility] Comment on above: Order Comment: Speci men Type: URINE SPECIMEN Ordering Facility: [facility] Address: [address] [place] [address] Performed By: #### U ACR #### [facility] CLIA [id number] [address] [place] Monocytes (Bld) [#/Vol] 0.57 10*3/uL Normal <0.87 [facility] Comment on above: Order Comment: Speci men Type: URINE SPECIMEN Ordering Facility: [facility] Address: [address] [place] [address] Performed By: #### U ACR #### [facility] CLIA [id number] [address] Monocytes/100 WBC (Bld) 7.9 % Normal [facility] Comment on above: Order Comment: Speci men Type: URINE SPECIMEN Ordering Facility: [facility] Address: [address] [place] [address] Performed By: #### U ACR #### [facility] CLIA [id number] [address] [place] Neutrophils (Bld) [#/Vol] 4.00 10*3/uL Normal 1.45-7.50 [facility] Comment on above: Order Comment: Speci men Type: URINE SPECIMEN Ordering Facility: [facility] Address: [address] [place] [address] Performed By: #### U ACR #### [facility] CLIA [id number] [address] Neutrophils/100 WBC (Bld) 55.5 % Normal [facility] Comment on above: Order Comment: Speci men Type: URINE SPECIMEN Ordering Facility: [facility] Address: [address] [place] [address] Performed By: #### U ACR #### [facility] CLIA [id number] [address] [place] Nucleated RBC (Bld) [#/Vol] Normal [facility] Comment on above: Order Comment: Speci men Type: URINE SPECIMEN Ordering Facility: [facility] Address: [address] [place] [address] Performed By: #### U ACR #### [facility] CLIA [id number] [address] Nucleated RBC/100 WBC (Bld) [Ratio] Normal [facility] Comment on above: Order Comment: Speci men Type: URINE SPECIMEN Ordering Facility: [facility] Address: [address] [place] [address] Performed By: #### U ACR #### [facility] CLIA [id number] [address] Platelet mean volume (Bld) [Entitic vol] 10.9 fL Normal 9.0-12.7 [facility] Comment on above: Order Comment: Speci men Type: URINE SPECIMEN Ordering Facility: [facility] Address: [facility] [place] [address] Performed By: #### U ACR #### [facility] CLIA [id number] [address] Platelets (Bld) [#/Vol] 190 10*3/uL Normal 150-400 [facility] Comment on above: Order Comment: Speci men Type: URINE SPECIMEN Ordering Facility: [facility] Address: [facility] [place] [address] Performed By: #### U ACR #### [facility] CLIA [id number] [address] RBC (Bld) [#/Vol] 5.18 10*6/uL Normal 4.20-6.00 [facility] Comment on above: Order Comment: Speci men Type: URINE SPECIMEN Ordering Facility: [facility] Address: [address] [place], [place] [address] [address] Performed By: #### U ACR #### [facility] CLIA [id number] [address] WBC (Bld) [#/Vol] 7.21 10*3/uL Normal 3.70-11.00 [facility] Comment on above: Order Comment: Speci men Type: URINE SPECIMEN Ordering Facility: [facility] Address: [address] [place] [address] Performed By: #### U ACR #### [facility] CLIA [id number] [address] OF [facility] Comprehensive metabolic 2000 panelon 06-21-2024 Albumin [Mass/Vol] 4.5 g/dL Normal 3.9-4.9 [facility] Comment on above: Order Comment: Speci men Type: BLOOD SPECIMEN Ordering Facility: External Submitter Address: , , Performed By: #### 2 4331-1, 3015-3, #### [facility] CLIA [id number] [address] [place] [address] [place] ALP [Catalytic activity/Vol] 37 U/L Low 38-113 [facility] Comment on above: Order Comment: Speci men Type: BLOOD SPECIMEN Ordering Facility: External Submitter Address: , , Performed By: #### 2 4331-1, 3, #### [facility] CLIA [id number] [address] [place] [address] [facility] [place] ALT With P-5'-P [Catalytic activity/Vol] 27 U/L Normal 10-54 [facility] Comment on above: Order Comment: Speci men Type: BLOOD SPECIMEN Ordering Facility: External Submitter Address: , , Performed By: #### 2 4331-1, 3, #### [facility] CLIA [id number] [address] [place] [address] [place] Anion gap [Moles/Vol] 12 mmol/L Normal 8-15 [facility] Comment on above: Order Comment: Speci men Type: BLOOD SPECIMEN Ordering Facility: External Submitter Address: , , Performed By: #### 2 4331-1, 3015-3, #### [facility] CLIA [id number] [address] [place] [address] [place] AST With P-5'-P [Catalytic activity/Vol] 23 U/L Normal 14-40 [facility] Comment on above: Order Comment: Speci men Type: BLOOD SPECIMEN Ordering Facility: External Submitter Address: , , Performed By: #### 2 4331-1, 3, #### [facility] CLIA [id number] [address] [facility] [place] [address] [place] Bilirubin [Mass/Vol] 0.5 mg/dL Normal 0.2-1.3 [facility] Comment on above: Order Comment: Speci men Type: BLOOD SPECIMEN Ordering Facility: External Submitter Address: , , Performed By: #### 2 4331-1, 3015-12, #### [facility] CLIA [id number] [address] [facility] [place] [address] [place] Calcium [Mass/Vol] 9.3 mg/dL Normal 8.5-10.2 [facility] Comment on above: Order Comment: Speci men Type: BLOOD SPECIMEN Ordering Facility: External Submitter Address: , , Performed By: #### 2 4331-1, 3015-12, #### [facility] CLIA [id number] [address] [facility] [place] [address] [place] Chloride [Moles/Vol] 100 mmol/L Normal 98-107 [facility] Comment on above: Order Comment: Speci men Type: BLOOD SPECIMEN Ordering Facility: External Submitter Address: , , Performed By: #### 2 4331-1, 3015-12, #### [facility] CLIA [id number] [address] [place] [address] [place] CO2 [Moles/Vol] 25 mmol/L Normal 22-30 [facility] Comment on above: Order Comment: Speci men Type: BLOOD SPECIMEN Ordering Facility: External Submitter Address: , , Performed By: #### 2 4331-1, 3, #### [facility] CLIA [id number] [address] [place] [address] [place] Creatinine [Mass/Vol] 0.71 mg/dL Low 0.73-1.22 [facility] Comment on above: Order Comment: Mariana mai Type: BLOOD SPECIMEN Ordering Facility: External Submitter Address: , , Performed By: #### 2 4331-1, 3016-3, 32288-8 #### [facility] CLIA [id number] [address] [place] [address] [facility] [place] Creatinine and Glomerular filtration rate.predicted panel (S/P/Bld) 102 mL/min/1.73m??? Normal >=60 [facility] Comment on above: Order Comment: Mariana mai Type: BLOOD SPECIMEN Ordering Facility: External Submitter Address: , , Result Comment: Maria R mated Glomerular Filtration Rate (eGFR) is calculated using the 2020 CKD-EPI creatinine equation. This equation utilizes serum creatinine, sex, and age as parameters. The creatinine assay has traceable calibration to isotope dilution-mass spectrometry. Refer to KDIGO guidelines for clinical interpretation. In patients with unstable renal function, e.g. those with acute kidney injury, the eGFR may not accurately reflect actual GFR. Performed By: #### 2 4331-1, 6-3, #### [facility] CLIA [id number] [address] [place] [address] [place] Glucose [Mass/Vol] 175 mg/dL High 74-99 [facility] Comment on above: Order Comment: Mariana mai Type: BLOOD SPECIMEN Ordering Facility: External Submitter Address: , , Result Comment: The [place] Diabetes [employer] (ADA) provides guidance for cutoff values for fasting glucose and random glucose. The ADA defines fasting as no caloric intake for at least 8 hours. Fasting plasma glucose results between 100 to 125 mg/dL indicate increased risk for diabetes (prediabetes). Fasting plasma glucose results greater than or equal to 126 mg/dL meet the criteria for diagnosis of diabetes. In the absence of unequivocal hyperglycemia, results should be confirmed by repeat testing. In a patient with classic symptoms of hyperglycemia or hyperglycemic crisis, random plasma glucose results greater than or equal to 200 mg/dL meet the criteria for diagnosis of diabetes. Reference: Standards of Medical Care in Diabetes 2016, [place] [employer]. Diabetes Care. 2016.39(Suppl 1). Performed By: #### 2 4331-1, 3015-12, #### [facility] CLIA [id number] [address] [place] [address] [place] Potassium [Moles/Vol] 4.4 mmol/L Normal 3.7-5.1 [facility] Comment on above: Order Comment: Mariana mai Type: BLOOD SPECIMEN Ordering Facility: External Submitter Address: , , Performed By: #### 2 4331-1, 3015-12, #### [facility] CLIA [id number] [address] [place] [address] [place] Protein [Mass/Vol] 7.6 g/dL Normal 6.3-8.0 [facility] Comment on above: Order Comment: Mariana mai Type: BLOOD SPECIMEN Ordering Facility: External Submitter Address: , , Performed By: #### 2 4331-1, 3015-12, #### [facility] CLIA [id number] [address] [place] [address] [place] Sodium [Moles/Vol] 137 mmol/L Normal 136-144 [facility] Comment on above: Order Comment: Mariana mai Type: BLOOD SPECIMEN Ordering Facility: External Submitter Address: , , Performed By: #### 2 4331-1, 3015-12, #### [facility] CLIA [id number] [address] [facility] [place] [address] [place] Urea nitrogen [Mass/Vol] 13 mg/dL Normal 9-24 [facility] Comment on above: Order Comment: Mariana mai Type: BLOOD SPECIMEN Ordering Facility: External Submitter Address: , , Performed By: #### 2 4331-1, 3015-12, #### [facility] CLIA [id number] [address] [facility] [place] [address] [place] Ferritin SerPl-mCncon 2023 Ferritin [Mass/Vol] 340.0 ng/mL Normal 30.3-565.7 [facility] Comment on above: Order Comment: Speci men Type: BLOOD SPECIMEN Ordering Facility: External Submitter Address: , , Performed By: #### 2 276-4, 2132-9 #### [facility] CLIA [id number] [address] OF [facility] Lipid 1996 panelon 4 Cholesterol [Mass/Vol] 126 mg/dL Normal <200 [facility] Comment on above: Order Comment: Speci men Type: URINE SPECIMEN Ordering Facility: [facility] Address: [address] [place] [address] Result Comment: <200 mg/dL, Desirable 200-239 mg/dL, Borderline high >239 mg/dL, High Performed By: #### U ACR #### [facility] CLIA [id number] [address] [place] [address] Cholesterol in HDL [Mass/Vol] 37 mg/dL Low >39 [facility] Center Comment on above: Order Comment: Speci men Type: URINE SPECIMEN Ordering Facility: [facility] Address: [address] [place] [address] Result Comment: 40-5 9 mg/dL, Acceptable >59 mg/dL, High: Negative risk factor for coronary heart disease <40 mg/dL, Low: Positive risk factor for coronary heart disease Performed By: #### U ACR #### [facility] CLIA [id number] [address] Cholesterol in LDL [Mass/Vol] 74 mg/dL Normal <100 [facility] Comment on above: Order Comment: Speci [facility] Type: URINE SPECIMEN Ordering Facility: [facility] Address: [address] [place] [address] Result Comment: <100 mg/dL, Optimal 100-129 mg/dL, Near optimal/above optimal 130-159 mg/dL, Borderline high 160-189 mg/dL, High >189 mg/dL, Very high Secondary prevention optimal LDL Cholesterol levels are recommended to be < 70 mg/dL Performed By: #### U ACR #### [facility] CLIA [id number] [address] [place] [address] Cholesterol in LDL/Cholesterol in HDL [Mass ratio] 2.00 {ratio} Normal <2.54 [facility] Comment on above: Order Comment: Speci men Type: URINE SPECIMEN Ordering Facility: [facility] Address: [address] [place] [address] Result Comment: Refe rence: 1. National Cholesterol Education Program ATP III Guideline At-A-Glance Quick Desk Reference: National Heart, Lung, and Blood Fritch. National Institutes of Health. 2001: NIH Publication No. 01-3305. 2. An International Atherosclerosis Society position paper: global recommendations for the management of dyslipidemia: executive summary, Atherosclerosis. 2014: 232(2):410-413. Performed By: #### U ACR #### [facility] CLIA [id number] [address] [place] [address] Cholesterol in VLDL [Mass/Vol] 15 mg/dL Normal <30 [facility] Comment on above: Order Comment: Speci men Type: URINE SPECIMEN Ordering Facility: [facility] Address: [address] [place] [address] Performed By: #### U ACR #### [facility] CLIA [id number] [address] [place] Cholesterol non HDL [Mass/Vol] 89 mg/dL Normal <130 [facility] Comment on above: Order Comment: Speci men Type: URINE SPECIMEN Ordering Facility: [facility] Address: [address] [place] [address] Result Comment: <130 mg/dL, Optimal 130-159 mg/dL, Near optimal/above optimal 160-189 mg/dL, Borderline high 190-219 mg/dL, High >219 mg/dL, Very high Secondary prevention optimal non HDL Cholesterol levels are recommended to be <100 mg/dL Performed By: #### U ACR #### [facility] CLIA [id number] [address] Cholesterol.total /Cholesterol in HDL [Mass ratio] 3.41 {ratio} Normal <5.10 [facility] Comment on above: Order Comment: Speci men Type: URINE SPECIMEN Ordering Facility: [facility] Address: [address] [place] [address] Performed By: #### U ACR #### [facility] CLIA [id number] [address] FASTING TIME 12 hrs Normal [facility] Comment on above: Order Comment: Speci men Type: URINE SPECIMEN Ordering Facility: [facility] Address: [address] [place] [address] Performed By: #### U ACR #### [facility] CLIA [id number] [address] Triglyceride [Mass/Vol] 73 mg/dL Normal <150 [facility] Comment on above: Order Comment: Speci men Type: URINE SPECIMEN Ordering Facility: [facility] Address: [address] [place] [address] Result Comment: <150 mg/dL, Normal 150-199 mg/dL, Borderline high 200-499 mg/dL, High >499 mg/dL, Very high Performed By: #### U ACR #### [facility] CLIA [id number] [address] TSH SerPl-aCncon 06-21-2024 TSH Qn 2.110 m[IU]/L Normal 0.270-4.200 [facility] Comment on above: Order Comment: Speci men Type: URINE SPECIMEN Ordering Facility: [facility] Address: [facility] [place] [address] Performed By: #### U ACR #### [facility] CLIA [id number] [address] URINALYSIS, REFLEX MICROSCOP ICon 06-21-2024 Bilirubin Ql (U) Negative Normal Negative [facility] Comment on above: Order Comment: Speci men Type: URINE SPECIMEN Ordering Facility: [facility] Address: , , Performed By: #### L [id number] #### [facility] [place] [facility] CLIA [id number] [address] [place] [address] Clarity (Unsp spec) Clear Normal Clear [facility] Comment on above: Order Comment: Speci men Type: URINE SPECIMEN Ordering Facility: [facility] Address: , , Performed By: #### L [id number] #### [facility] [place] [facility] CLIA [id number] [address] [place] [address] [facility] Color (U) Yellow Normal Yellow [facility] Comment on above: Order Comment: Speci men Type: URINE SPECIMEN Ordering Facility: External Sub[facility] Address: , , Performed By: #### L [id number] #### [facility] [place] [facility] CLIA [id number] [address] [facility] [place] [address] [facility] Glucose Test strip (U) [Mass/Vol] Trace Abnormal Negative [facility] Comment on above: Order Comment: Speci men Type: URINE SPECIMEN Ordering Facility: [facility] Address: , , Performed By: #### L [id number] #### [facility] [place] [facility] CLIA [id number] [address] [facility] [place] [address] [facility] [place] Hemoglobin Ql (U) Negative Normal Negative [facility] Comment on above: Order Comment: Speci men Type: URINE SPECIMEN Ordering Facility: [facility] Address: , , Performed By: #### L [id number] #### [facility] [place] [facility] CLIA [id number] [address] [facility] [place] [address] [facility] [place] Ketones Ql (U) Negative Normal Negative [facility] Comment on above: Order Comment: Speci men Type: URINE SPECIMEN Ordering Facility: [facility] Address: , , Performed By: #### L [id number] #### [facility] [place] [facility] CLIA [id number] [address] [facility] [place] [address] [facility] [place] Leukocyte esterase Test strip Ql (U) Negative Normal Negative [facility] Comment on above: Order Comment: Speci men Type: URINE SPECIMEN Ordering Facility: [facility] Address: , , Performed By: #### L [id number] #### [facility] [place] [facility] CLIA [id number] [address] [facility] [place] [address] [place] Nitrite Ql (U) Negative Normal Negative [facility] Comment on above: Order Comment: Speci men Type: URINE SPECIMEN Ordering Facility: [facility] Address: , , Performed By: #### L [id number] #### [facility] CLIA [id number] [address] [place] [address] [facility] pH (U) 7.0 [pH] Normal 5.0-8.0 [facility] Comment on above: Order Comment: Speci men Type: URINE SPECIMEN Ordering Facility: [facility] Address: , , Performed By: #### L [id number] #### [facility] CLIA [id number] [address] [place] [address] [facility] Protein (U) [Mass/Vol] Negative Normal Negative [facility] Comment on above: Order Comment: Speci men Type: URINE SPECIMEN Ordering Facility: [facility] Address: , , Performed By: #### L [id number] #### [facility] CLIA [id number] [address] [place] [address] Specific gravity (U) [Rel density] 1.015 Normal 1.005-1.030 [facility] Comment on above: Order Comment: Speci men Type: URINE SPECIMEN Ordering Facility: [facility] Address: , , Performed By: #### L [id number] #### [facility] CLIA [id number] [address] [place] [id number] [place] [address] Urobilinogen Ql (U) 1.0 EU/dL Normal 0.2-1.0 EU/dL [facility] Comment on above: Order Comment: Speci men Type: URINE SPECIMEN Ordering Facility: [facility] Address: , , Performed By: #### L [id number] #### [facility] CLIA [id number] [address] [place] [address] [facility] Vit B12 SerPl-mCncon 024 Cobalamin (Vitamin B12) [Mass/Vol] 584 pg/mL Normal 232-1245 [facility] Comment on above: Order Comment: Speci men Type: BLOOD SPECIMEN Ordering Facility: [facility] Address: , , Performed By: #### 2 543-4, 2132-9 #### [facility] CLIA [id number] [address] [place] ALBUMIN/CREAT RATIO RND URon 09-10-2023 Albumin Unsp time DL <= 20 mg/L (U) [Mass/Time] 21.6 mg/L Normal [facility] Comment on above: Order Comment: Speci men Type: URINE SPECIMEN Ordering Facility: [facility] Address: [address] [place] [address] Performed By: #### U ACR #### [facility] CLIA [id number] [address] Albumin/Creatinin e (U) [Mass ratio] 22 mg/g Normal <30 [facility] Comment on above: Order Comment: Speci men Type: URINE SPECIMEN Ordering Facility: [facility] Address: [facility], [place] [address] Result Comment: Adul t Male and Female Nephrotic Criteria: <30 mg/g is considered normal to mildly increased 30-300 mg/g is considered moderately increased >300 mg/g is considered severely increased KDIGO. (2013). KDIGO 2012 Clinical Practice Guideline for the Evaluation and Management of Chronic Kidney Disease. Official Journal of the International Society of Nephrology, 3(1), 1-150. Performed By: #### U ACR #### [facility] CLIA [id number] [address] STATES OF [facility] Creatinine (U) [Mass/Vol] 100.3 mg/dL Normal 46.8-314.5 [facility] Comment on above: Order Comment: Speci men Type: URINE SPECIMEN Ordering Facility: [facility] Address: [address] [place] [address] Performed By: #### U ACR #### [facility] CLIA [id number] [address] Comprehensive metabolic 2000 panelon 09-10-2023 Albumin [Mass/Vol] 4.4 g/dL Normal 3.9-4.9 [facility] Comment on above: Order Comment: Speci men Type: BLOOD SPECIMEN Ordering Facility: [facility] Address: [address] [place] [address] Performed By: #### 2 4323-8, 16715-3, 3016-3 #### [facility] [place] [facility] CLIA [id number] [address] [facility] [place] [address] [place] ALP [Catalytic activity/Vol] 42 U/L Normal 38-113 [facility] Comment on above: Order Comment: Speci men Type: BLOOD SPECIMEN Ordering Facility: [facility] Address: [address] [place] [address] Performed By: #### 2 4323-8, 98309-4, 3015-3 #### [facility] [place] [facility] CLIA [id number] [address] [facility] [place] [address] [place] ALT With P-5'-P [Catalytic activity/Vol] 21 U/L Normal 10-54 [facility] Comment on above: Order Comment: Speci men Type: BLOOD SPECIMEN Ordering Facility: [facility] Address: [address] [place] [address] Performed By: #### 2 4323-8, 34245-9, 6-3 #### [facility] [place] [facility] CLIA [id number] [address] [facility] [place] [address] [place] Anion gap [Moles/Vol] 12 mmol/L Normal 9-18 [facility] Comment on above: Order Comment: Speci men Type: BLOOD SPECIMEN Ordering Facility: [facility] Address: [address] [place] [address] Performed By: #### 2 4323-8, 13683-1, 6-3 #### [facility] [place] [facility] CLIA [id number] [address] [facility] [place] [address] [place] AST With P-5'-P [Catalytic activity/Vol] 21 U/L Normal 14-40 [facility] Comment on above: Order Comment: Speci men Type: BLOOD SPECIMEN Ordering Facility: [facility] Address: [address] [place] [address] Performed By: #### 2 4323-8, 87016-7, 3016-3 #### [facility] [place] [facility] CLIA [id number] [address] [place] [address] [place] Bilirubin [Mass/Vol] 0.5 mg/dL Normal 0.2-1.3 [facility] Comment on above: Order Comment: Speci men Type: BLOOD SPECIMEN Ordering Facility: [facility] Address: [address] [place] [address] [place] [place] [address] Performed By: #### 2 4323-8, 30552-3, 3015-3 #### [facility] [place] [facility] CLIA [id number] [address] [place] [address] [place] Calcium [Mass/Vol] 9.7 mg/dL Normal 8.5-10.2 [facility] Comment on above: Order Comment: Speci men Type: BLOOD SPECIMEN Ordering Facility: [facility] Address: [address] [place], [place] [address]E., [place] [address] Performed By: #### 2 4323-8, 61580-7, 3 #### [facility] [place] [facility] CLIA [id number] 225 [facility] [place] [address] [place] Chloride [Moles/Vol] 102 mmol/L Normal 97-105 [facility] Comment on above: Order Comment: Speci men Type: BLOOD SPECIMEN Ordering Facility: [facility] Address: [address] [place] [address] [place]., [place] [address] Performed By: #### 2 4323-8, 40852-8, 3015-3 #### [facility] [place] [facility] CLIA [id number] [address] [facility] [place] [address] [place] CO2 [Moles/Vol] 27 mmol/L Normal 22-30 [facility] Comment on above: Order Comment: Speci men Type: BLOOD SPECIMEN Ordering Facility: [facility] Address: [address] [place] [address] [place] [place] [address] Performed By: #### 2 4323-8, 52296-5, 3015-3 #### [facility] [place] [facility] CLIA [id number] [address] [place] [address] [place] Creatinine [Mass/Vol] 0.81 mg/dL Normal 0.73-1.22 [facility] Comment on above: Order Comment: Mariana mai Type: BLOOD SPECIMEN Ordering Facility: [facility] Address: [address], [place] [id number] Performed By: #### 2 4323-8, 25764-2, 3016-3 #### [facility] CLIA [id number] [address] [place] [address] [facility] Creatinine and Glomerular filtration rate.predicted panel (S/P/Bld) 98 mL/min/1.73m??? Normal >=60 [facility] Comment on above: Order Comment: Mariana mai Type: BLOOD SPECIMEN Ordering Facility: [facility] Address: [facility] [address] [place] [address] Result Comment: Maria R mated Glomerular Filtration Rate (eGFR) is calculated using the 2020 CKD-EPI creatinine equation. This equation utilizes serum creatinine, sex, and age as parameters. The creatinine assay has traceable calibration to isotope dilution-mass spectrometry. Refer to KDIGO guidelines for clinical interpretation. In patients with unstable renal function, e.g. those with acute kidney injury, the eGFR may not accurately reflect actual GFR. Performed By: #### 2 4323-8, 45765-6, 6-3 #### [facility] CLIA [id number] [address] [place] [address] [place] Glucose [Mass/Vol] 209 mg/dL High 74-99 [facility] Comment on above: Order Comment: Mariana mai Type: BLOOD SPECIMEN Ordering Facility: [facility] Address: [address] [place] [address] Result Comment: The [place] Diabetes Association (ADA) provides guidance for cutoff values for fasting glucose and random glucose. The ADA defines fasting as no caloric intake for at least 8 hours. Fasting plasma glucose results between 100 to 125 mg/dL indicate increased risk for diabetes (prediabetes). Fasting plasma glucose results greater than or equal to 126 mg/dL meet the criteria for diagnosis of diabetes. In the absence of unequivocal hyperglycemia, results should be confirmed by repeat testing. In a patient with classic symptoms of hyperglycemia or hyperglycemic crisis, random plasma glucose results greater than or equal to 200 mg/dL meet the criteria for diagnosis of diabetes. Reference: Standards of Medical Care in Diabetes 2016, [place] Diabetes Association. Diabetes Care. 2016.39(Suppl 1). Performed By: #### 2 4323-8, 77170-5, 6-3 #### [facility] [place] [facility] CLIA [id number] [address] [facility] [place] [address] [place] Potassium [Moles/Vol] 4.4 mmol/L Normal 3.7-5.1 [facility] Comment on above: Order Comment: Speci men Type: BLOOD SPECIMEN Ordering Facility: [facility] Address: [address] [place] [address] Performed By: #### 2 4323-8, 61710-9, 3015-3 #### [facility] [place] [facility] CLIA [id number] [address] [place] [address] [place] Protein [Mass/Vol] 7.3 g/dL Normal 6.3-8.0 [facility] Comment on above: Order Comment: Olesyai men Type: BLOOD SPECIMEN Ordering Facility: [facility] Address: [address] [place] [address] Performed By: #### 2 4323-8, 63308-8, 3015-3 #### [facility] [place] [facility] CLIA [id number] [address] [place] [address] [place] Sodium [Moles/Vol] 141 mmol/L Normal 136-144 [facility] Comment on above: Order Comment: Speci men Type: BLOOD SPECIMEN Ordering Facility: [facility] Address: [address] [place] [address] Performed By: #### 2 4323-8, 74856-1, 6-3 #### [facility] [place] [facility] CLIA [id number] [address] [place] [address] [place] Urea nitrogen [Mass/Vol] 12 mg/dL Normal 9-24 [facility] Comment on above: Order Comment: Speci men Type: BLOOD SPECIMEN Ordering Facility: [facility] Address: [address] [place] [address] Performed By: #### 2 4323-8, 11996-8, 3015-3 #### [facility] [place] [facility] CLIA [id number] [address] [place] [address] [facility] Lipid 1996 panelon 3 Cholesterol [Mass/Vol] 121 mg/dL Normal <200 [facility] Comment on above: Order Comment: Speci men Type: BLOOD SPECIMEN Ordering Facility: [facility] Address: [address] [place] [address] [place] [address] Result Comment: <200 mg/dL, Desirable 200-239 mg/dL, Borderline high >239 mg/dL, High Performed By: #### 2 4323-8, 50803-0, 3015- #### [facility] [place] [facility] CLIA [id number] [address] [place] [address] [facility] Cholesterol in HDL [Mass/Vol] 37 mg/dL Low >39 [facility] Comment on above: Order Comment: Speci [facility] Type: BLOOD SPECIMEN Ordering Facility: [facility] Address: [address] [place], [place] [address] [address] Result Comment: 40-5 9 mg/dL, Acceptable >59 mg/dL, High: Negative risk factor for coronary heart disease <40 mg/dL, Low: Positive risk factor for coronary heart disease Performed By: #### 2 4323-8, 31875-0, 3015- #### [facility] [place] [facility] CLIA [id number] [address] [place] [address] [facility] Cholesterol in LDL [Mass/Vol] 69 mg/dL Normal <100 [facility] Comment on above: Order Comment: Speci [facility] Type: BLOOD SPECIMEN Ordering Facility: [facility] Address: [address] [place], [place] [address]E., [place] [address] Result Comment: <100 mg/dL, Optimal 100-129 mg/dL, Near optimal/above optimal 130-159 mg/dL, Borderline high 160-189 mg/dL, High >189 mg/dL, Very high Secondary prevention optimal LDL Cholesterol levels are recommended to be < 70 mg/dL Performed By: #### 2 4323-8, 06939-3, 3015-3 #### [facility] [place] [facility] CLIA [id number] [address] [place] [address] [facility] Cholesterol in LDL/Cholesterol in HDL [Mass ratio] 1.86 {ratio} Normal <2.54 [facility] Comment on above: Order Comment: Olesyaisac mai Type: BLOOD SPECIMEN Ordering Facility: [facility] Address: [address] [place] [address] Result Comment: Refe rence: 1. National Cholesterol Education Program ATP III Guideline At-A-Glance Quick Desk Reference: National Heart, Lung, and Blood Fritch. National Institutes of Health. 2001: NIH Publication No. 01-3305. 2. An International Atherosclerosis Society position paper: global recommendations for the management of dyslipidemia: executive summary, Atherosclerosis. 2014: 232(2):410-413. Performed By: #### 2 4323-8, 89325-2, 3015-3 #### [facility] [place] [facility] CLIA [id number] [address] [place] [address] [facility] Cholesterol in VLDL [Mass/Vol] 15 mg/dL Normal <30 [facility] Comment on above: Order Comment: [facility] Type: BLOOD SPECIMEN Ordering Facility: [facility] Address: [address] [place] [address] Performed By: #### 2 4323-8, 57081-8, 3015-3 #### [facility] [place] [facility] CLIA [id number] [address] [place] [address] [facility] Cholesterol non HDL [Mass/Vol] 84 mg/dL Normal <130 [facility] Comment on above: Order Comment: [facility] Type: BLOOD SPECIMEN Ordering Facility: [facility] Address: [address] [place] [address] Result Comment: <130 mg/dL, Optimal 130-159 mg/dL, Near optimal/above optimal 160-189 mg/dL, Borderline high 190-219 mg/dL, High >219 mg/dL, Very high Secondary prevention optimal non HDL Cholesterol levels are recommended to be <100 mg/dL Performed By: #### 2 4323-8, 94948-6, 6-3 #### [facility] [place] [facility] CLIA [id number] [address] [place] [address] [facility] [place] Cholesterol.total /Cholesterol in HDL [Mass ratio] 3.27 {ratio} Normal <5.10 [facility] Comment on above: Order Comment: Speci men Type: BLOOD SPECIMEN Ordering Facility: [facility] Address: [address] [place], [place] [address] [address] Performed By: #### 2 4323-8, 46472-0, 3016-3 #### [facility] CLIA [id number] [address] [place] [address] [facility] FASTING TIME 12 hrs Normal [facility] Comment on above: Order Comment: Speci men Type: BLOOD SPECIMEN Ordering Facility: [facility] Address: [address] [place], [place] [address] [address] Performed By: #### 2 4323-8, 49078-0, 6-3 #### [facility] CLIA [id number] [address] [place], [place] [address] [place] [address] Triglyceride [Mass/Vol] 73 mg/dL Normal <150 [facility] Comment on above: Order Comment: Speci men Type: BLOOD SPECIMEN Ordering Facility: [facility] Address: [address] [place], [place] [address] [place] [address] Result Comment: <150 mg/dL, Normal 150-199 mg/dL, Borderline high 200-499 mg/dL, High >499 mg/dL, Very high Performed By: #### 2 4323-8, 03639-8, 3016-3 #### [facility] CLIA [id number] [address] [place] [address] [facility] [place] TSH SerPl-aCncon 09-10-2023 TSH Qn 1.670 m[IU]/L Normal 0.270-4.200 [facility] Comment on above: Order Comment: Speci men Type: BLOOD SPECIMEN Ordering Facility: [facility] Address: [address] [place], [place] [address] [id number] Performed By: #### 2 4323-8, 29511-3, 3016-3 #### [facility] [place] [facility] CLIA [id number] [address] [place] [address] [facility] Sultana 09-03-2023 CNPN Telephone (ENDMED) EDITA LIZARRAGA ([id number]) 1960 M Date Time Provider Department 09/03/23 [facility]ILL[facility] VILLALOBOS During your visit today, we recorded the following information about you: Lorin Bowman MA 09/03/2023 1:14 PM Signed Received Eye Exam Report from [facility] [facility] Updated. Placed in provider's inbox for review. Route to [place] for scanning. Lorin Bowman MA 09/03/2023 4:11 PM Signed Sent to scanning. Encounter Closed. Allergies As of Date: 09/03/2023 Noted Allergy Reaction AVANDIA (ROSIGLITAZONE MALEATE) 01/09/2011 14 - Other: See Comments Comments: Weight gain BYDUREON (EXENATIDE MICROSPHERES) 12/05/2016 9 - Itching Comments: Itching and welts PENICILLINS 01/09/2011 5 - Intolerance Comments: Fatigue/gi upset Date Reviewed: 03/25/2021 Reviewed by: Rick Rodríguez Ma - Fully Assessed Reason for Visit: Dilated Eye Exam Report [Other] Cmt: [facility] Prescriptions as of 09/03/2023 - verapamil SR (CALAN SR) 240 mg CR tablet TAKE 1 TABLET TWICE A DAY - insulin NPH injection (HumuLIN N,NovoLIN N) INJECT 28 UNITS UNDER THE SKIN AT BREAKFAST AND 50 UNITS AT BEDTIME - gabapentin (NEURONTIN) 600 mg tablet Take 1 tablet by mouth three times daily for 90 days. - Fenofibrate (LOFIBRA) 160 mg tablet TAKE 1 TABLET DAILY - simvastatin (ZOCOR) 20 mg tablet TAKE 1 TABLET DAILY AT BEDTIME - metFORMIN ER (GLUCOPHAGE XR) 500 mg 24 hr tablet TAKE 2 TABLETS TWICE A DAY - insulin regular human (HUMULIN R REGULAR U-100 INSULN) 100 unit/mL injection INJECT 20 UNITS UNDER THE SKIN BEFORE BREAKFAST, 15 UNITS AT LUNCH AND 20 UNITS AT SUPPER - Insulin Syringe-Needle U-100 (BD INSULIN SYRINGE UF II) 0.5 mL 31 gauge x /16 5 daily for insulin injections. 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*08/22/2002 Hypertension [I10] 01/11/2011 04/24/2016 Mixed hyperlipidemia [E78.2] 01/11/2011 History of central retinal vein occlusion [Z86.*03/20/2012 Bilateral hip pain [M25.551, M25.552] 04/23/2014 11/19/2016 Hypertension [I10] 04/24/2016 Painful diabetic neuropathy (HCC) [E11.40] 07/13/2016 Microalbuminuria [R80.9] 11/11/2019 Obesity, Class III, BMI 40-49.9 (morbid obesity*03/25/2021 02/16/2022 Obesity, Class II, BMI 35-39.9 [E66.9] 09/26/2021 Encounter Status:Closed by CAMILLA VILLALOBOS on 09/03/23 Normal [facility] CNCOon 10-17-2019 CNCO Letter Text [facility] Office-Progress Notes-Pr ovideron 10-31-2017 [facility] Office-Progress Notes-Provider Patient: EDITA LIZARRAGA Age: 57 years Sex: Male : 1960 Associated Diagnoses: None Author: EMILIA MORALES, KALEB Visit Information Visit type: New symptom. Accompanied by: No one. Source of history: Self. History limitation: None. Chief Complaint 10/30/2017 14:19 EST CHEST PAIN , DIZZY, EAR ACHE History of Present Illness Mr. Lizarraga is a 57-year-old man with history of hypertension, diabetes, hyperlipidemia, family history of coronary artery disease here for cardiac evaluation. He has a torn rotator cuff and he got a steroid shot in his blood sugar has been fluctuating. No prior myocardial infarctions stroke or peripheral vascular disease. No history of any heart failure or thyroid problems or COPD. No dizziness lightheadedness or syncope. Does have shortness of breath but again he is obese. His EKG shows no acute changes basically shows normal sinus rhythm. His blood pressure is 133/75. Us about his risk factors sent to risk of having coronary artery disease and I suggested to get a regular stress test Review of Systems Constitutional: Negative. Eye: Negative. Ear/Nose/Mouth/Throat: Negative. Respiratory: No shortness of breath, No cough, No wheezing. Cardiovascular: No chest pain, No palpitations, No peripheral edema. Gastrointestinal: No nausea, No vomiting, No heartburn, No abdominal pain. Genitourinary: Negative. Hematology/Lymphatics: Negative. Endocrine: Negative. Immunologic: Negative. Musculoskeletal: Negative. Integumentary: Negative. Psychiatric: Negative. Health Status Allergies: No allergies have been recorded., No qualifying data available Current medications: (Selected) Documented MedicationsDocumentedCalan SR 240 mg/12 hours oral tablet, extended release: 240 mg = 1 tabs, ORAL, DAILY, 90 tabs, 0 Refill(s)HumuLIN N 100 units/mL subcutaneous suspension: Subcutaneous, BID, 0 Refill(s)HumuLIN R 100 units/mL injectable solution: Subcutaneous, 0 Refill(s)Zocor 20 mg oral tablet: 20 mg = 1 tabs, ORAL, QHS, 90 tabs, 0 Refill(s)fenofibrate 160 mg oral tablet: 160 mg = 1 tabs, ORAL, DAILY, 90 tabs, 0 Refill(s)gabapentin 300 mg oral capsule: 300 mg = 1 caps, ORAL, TID, 90 caps, 0 Refill(s)metFORMIN 500 mg oral tablet, extended release: 1,000 mg = 2 tabs, ORAL, BID, 0 Refill(s) Problem list: No qualifying data available Histories Past Medical History: No qualifying data available Family History: SisterDiabetes..FatherHeart attack....Heart failure....Diabetes..MotherHe art attack.... Procedure history: No active procedure history items have been selected or recorded. Social History Social & Psychosocial AqkvvlTqdlgqa89/09/2018 Use: Current Type: Beer Comment: 1 BEER PER DAY - 10/30/2017 14:22 - Elisabet Coello MAco10/30/2017 Use: Former smoker, quit more. Physical Examination No qualifying data available. General: Alert and oriented, No acute distress. Eye: Normal conjunctiva, Vision unchanged. HENT: Normal hearing. Neck: Supple, Non-tender, No carotid bruit, No jugular venous distention, No lymphadenopathy. Respiratory: Lungs are clear to auscultation, Breath sounds are equal, Symmetrical chest wall expansion. Cardiovascular: Normal rate, No gallop, Good pulses equal in all extremities, Normal peripheral perfusion, No edema. Bruit: None. Gastrointestinal: Soft, Non-tender, Normal bowel sounds. Genitourinary: No costovertebral angle tenderness. Musculoskeletal No tenderness. No swelling. Integumentary: Warm, Dry. Neurologic: Alert, Normal sensory, Normal motor function, Cranial Nerves II-XII are grossly intact. Review / Management No qualifying data available Impression and Plan 1.Hypertension2.Diabetes3.Hyp erlipidemia4.Atypical chest pain5.Would plan for stress test 6.Continue current medications and follow up based on the stress test. Normal [facility] Stress Test Reporton 018 Stress Test Report Patient: EDITA LIZARRAGA Age: 57 years Sex: Male : 1960 Associated Diagnoses: None Author: KALEB NIETO MD [facility] STRESS TEST REPORTINDICATION: Chest painRESTING ECG: NSRBASELINE HEART RATE AND BP: 96 per minute: 142/80 mm HgPEAK HR AND BP: 132 per minute(84%) 160/74 mm HgDURARTION: 6.14 minutesMETS: 8.0REASONG TO STOP: DypsneaSYMPTOMS: NoneST CHANGES: NoneARRHYTHMIAS: Occasional PVCIMPRESSION:1. Moderately reduced working capacity in a test limited by fatigue and shortness of breath2. Normal heart rate and blood pressure response to exercise3. No significant ectopy4. No electrocardiographic evidence of stress-induced ischemia at the heart rate achieved Normal [facility] MRI Up Ext Joint w/o Contras t Lefton 10-19-2017 MRI Up Ext Joint w/o Contrast Left Patient Name: EDITA LIZARRAGA MRI Exam Date/Time 10/19/2017 11:28:46 EST Exam MRI Up Ext Joint w/o Contrast Left Ordering Physician MD RENETTA, YONATAN Munguia Accession Number [id number] CPT4 Codes 45432 () Reason For Exam Pain,tendinitis Report Exam Type: MRI Up Ext Joint w/o Contrast Left Exam Date and Time: 10/19/2017 11:28 AM EST Demographics: Gender: Male; Age: 57 years Indication: Left shoulder pain; Comparison: None available TECHNIQUE: MRI of the left shoulder was performed using a standard non-contrast protocol in three planes. FINDINGS: GLENOHUMERAL JOINT and OSSEOUS STRUCTURES: Alignment is anatomic. No joint effusion. No acute fracture, Hill-Sachs deformity or osseous Bankart defect. No deep/focal cartilage defects. LABRUM: No evidence of labral tear by non-arthrogram MRI. ROTATOR CUFF: There is globular T1 and T2 hypointense signal within the anterior supraspinatus measuring 12 x 5 x 13 mm in keeping with calcific tendinosis. Additionally, there is a full-thickness tear of the anterior supraspinatus measuring 4 mm in AP dimension. There is 14 mm of medial tendon retraction of the involved fibers. There is mild infraspinatus tendinosis without tear. There is mild subscapularis tendinosis without tear. BICEPS TENDON and ROTATOR INTERVAL: Long head biceps tendon: Normally positioned within the intertubercular groove. No tendinosis or tendon tear. Mild extracapsular tenosynovitis. Rotator interval: Fat in the rotator interval is preserved. MUSCLE BULK: Rotator cuff musculature is normal in bulk and signal without edema or atrophy. ACROMION and ACROMIOCLAVICULAR JOINT: Mild acromioclavicular joint osteoarthritis. Small subacromial spur. No os acromiale. SUBACROMIAL-SUBDELTOID BURSA: Fluid extends into the bursa from a full-thickness tear. OTHER: No mass effect in the spinoglenoid notch, suprascapular notch or quadrilateral space. IMPRESSION: 1. Full thickness tear of the supraspinatus measuring 4 mm in AP dimension and with 14 mm of involved tendon retraction. 2. Calcific tendinosis of the anterior supraspinatus, with hydroxyapatite deposit measuring 12 x 5 x 13 mm. 3. Mild tendinosis of the infraspinatus and subscapularis without tear. 4. Small subacromial spur. Report Dictated on Final Dictated: 10/19/2017 12:28 pm Dictating Physician: MD TORRES NEIL Signed Date and Time: 10/19/2017 1:46 pm Signed by: MD TORRES NEIL Transcribed Date and Time: 10/19/2017 1:24 Normal [facility] Vital Signs Date Time Vital Sign Value Performing Clinician Nettie caballero 06-24-2025 11:42-0400 Body height 182.88 cm No Primary Care Physician [facility] 06-24-2025 11:42-0400 Body mass index (BMI) [Ratio] 39.4 kg/m2 No Primary Care Physician [facility] 06-24-2025 11:42-0400 Body weight 131.99 kg No Primary Care Physician [facility] 06-24-2025 11:42-0400 Diastolic blood pressure 75 mm[Hg] No Primary Care Physician [facility] 06-24-2025 11:42-0400 Heart rate 80 /min No Primary Care Physician [facility] 06-24-2025 11:42-0400 SaO2% (BldA) [Mass fraction] 93 % No Primary Care Physician [facility] 06-24-2025 11:42-0400 Systolic blood pressure 149 mm[Hg] No Primary Care Physician [facility] Encounters Encounter Date Encounter Type Care Provider Facility Start: 07-01-2025 End: 07-01-2025 Office outpatient new 30 minutes Radu Tai APRN - [employer] Work Phone: [facility] Comment on above: Other infective acut e otitis externa of right ear (Primary Dx); Right ear impacted cerumen Start: 07-01-2025 End: 07-01-2025 Clinical Support Tomasa Ga Work Phone: [facility] Comment on above: Sensorineural hearin g loss, bilateral (Primary Dx) Start: 06-24-2025 End: 06-24-2025 Patient encounter procedure Judi SEWELL [facility] Work Phone: Start: 06-24-2025 End: 06-24-2025 ambulatory No Primary Care Physician [facility] Start: 03-11-2025 End: 03-11-2025 Clinical Support Ariana Ruiz AuD Work Phone: [facility] Comment on above: Sensorineural hearin g loss, bilateral (Primary Dx) Start: 02-18-2025 End: 02-18-2025 Clinical Support Ariana Ruiz AuD Work Phone: [facility] Comment on above: Sensorineural hearin g loss, bilateral (Primary Dx) Start: 02-04-2025 End: 02-04-2025 Clinical Support Ariana Ruiz AuD Work Phone: [facility] Comment on above: Sensorineural hearin g loss, bilateral (Primary Dx) Start: 01-27-2025 End: 05-06-2025 Telephone encounter Ariana Ruiz AuD Work Phone: [facility] Clinical Communication Comment on above: Appointment Start: 01-07-2025 End: 01-07-2025 Clinical Support Ariana Ruiz AuD Work Phone: [facility] Comment on above: Sensorineural hearin g loss, bilateral (Primary Dx); Benign paroxysmal positional vertigo of right ear Start: 12-24-2024 End: 12-24-2024 ambulatory No Primary Care Physician Facility:[facility] Start: 12-19-2024 End: 01-06-2025 Telephone encounter Ariana Ruiz AuD Work Phone: [facility] Comment on above: Appointment Request Start: 08-01-2024 End: 08-01-2024 ambulatory [facility] Facility:[facility] Start: 06-25-2024 End: 06-25-2024 ambulatory [facility] Facility:[facility] Start: 06-21-2024 End: 06-21-2024 ambulatory [facility] Start: 03-06-2024 Refill Camilla hernandez MD Work Phone: Endocrinology Comment on above: Refill Request Start: 09-10-2023 End: 09-10-2023 ambulatory JUDI DESTINEE HAY Facility:[facility] Start: 09-03-2023 Telephone encounter Camilla Villalobos MD Work Phone: Endocrinology Comment on above: Dilated Eye Exam Rep ort ([facility]) Start: 05-18-2023 Refill Camilla hernandez MD Work Phone: Endocrinology Comment on above: Refill Request Start: 09-19-2022 Refill Camilla hernandez MD Work Phone: Endocrinology Comment on above: Refill Request Start: 09-04-2022 Refill Camilla hernandez MD Work Phone: Endocrinology Comment on above: Refill Request Start: 03-29-2022 ambulatory Camilla hernandez MD Work Phone: Endocrinology Comment on above: Insurance Start: 03-22-2022 Refill Camilla hernandez MD Work Phone: Endocrinology Comment on above: Refill Request Start: 03-17-2022 Refill Camilla hernandez MD Work Phone: Endocrinology Comment on above: Refill Request Start: 03-11-2022 ambulatory Camilla hernandez MD Work Phone: Endocrinology Comment on above: Medicine question Start: 03-03-2022 Refill Camilla hernandez MD Work Phone: Endocrinology Comment on above: Refill Request Start: 02-09-2022 Telephone encounter Camilla Villalobos MD Work Phone: Endocrinology Comment on above: Blood Sugar Reading Start: 02-08-2022 Telephone encounter Camilla Villalobos MD Work Phone: Endocrinology Comment on above: Diabetic Eye Exam ([facility]) Start: 01-24-2022 Telephone encounter Camilla Villalobos MD Work Phone: Endocrinology Comment on above: Diabetic Eye Exam ([facility]) Start: 10-30-2017 End: 10-31-2017 Ambulatory KALEB NIETO Facility:[facility] Start: 10-19-2017 Ambulatory Yonatan Pa [facility] Plan of Treatment Date Care Activity Detail Author Start: 06-22-2025 COVID-19 Vaccine ( season) COVID-19 Vaccine ( season) [facility] Start: 06-22-[address] [facility] Start: 06-21-2025 Diabetes: Estimated Glomerular Filtration Rate for [facility] Diabetes: Estimated Glomerular Filtration Rate for [facility] Start: 06-21-2025 Diabetes: Urine Albumin-Creatinine Ratio for [facility] Diabetes: Urine Albumin-Creatinine Ratio for [facility] Start: 03-11-2025 End: 03-11-2025 Clinical Support 03/11/2025 9:30 AM EDT Clinical Support [facility] [address] [place] [address] Ariana Ruiz, AuD [address] [place] [address] [facility] Start: 02-18-2025 End: 02-18-2025 Clinical Support 02/18/2025 9:00 AM EDT Clinical Support [facility] [address] [place] [address] Ariana Ruiz, AuD [address] [place] [address] [facility] Start: 01-28-2025 End: 01-28-2025 Clinical Support 01/28/2025 9:30 AM EDT [facility] [address] [place] [address] Ariana Ruiz, AuD [address] [place] [address] [facility] Start: 01-07-2025 End: 01-07-2025 Clinical Support 01/07/2025 11:00 AM EDT Clinical Support [facility] [place] [address] [place] [id number] Ariana Ruiz, AuD [address] [place] [address] [facility] Start: 09-10-2024 Hepatitis B screening Urine Albumin:Creatinine Ratio [facility] Start: 09-10-2024 Hepatitis B surface antibody level LDL Cholesterol [facility] Start: 08-31-2024 Glaucoma screening Dilated Retinal Exam [facility] Start: 08-31-2024 Hepatitis C antibody, confirmatory test Dilated Retinal Exam [facility] Start: 06-22-2024 COVID-19 Vaccine ( season) COVID-19 Vaccine () [facility] Start: 06-22-2024 Influenza vaccination [facility] Start: 10-22-2023 Advance Directive Discussion Advance Directive Discussion [facility] Start: 10-22-2023 Behavioral Health Screening Behavioral Health Screening [facility] Start: 06-22-2023 Covid-19 Vaccine ( season) Covid-19 Vaccine () [facility] Start: 06-22-2023 Influenza vaccination [facility] Start: 01-24-2023 3 comp foot exam completed DIABETIC FOOT EXAM [facility] Start: 01-24-2023 Diabetic foot examination Diabetic Foot Exam [facility] Start: 01-24-2023 Hepatitis C antibody, confirmatory test DILATED RETINAL EXAM [facility] Start: 10-22-2022 DEPRESSION ASSESSMENT DEPRESSION ASSESSMENT [facility] Start: 10-11-2022 Hepatitis B screening URINE ALBUMIN:CREATININE RATIO [facility] Start: 10-11-2022 Hepatitis B surface antibody level LDL CHOLESTEROL [facility] Start: 09-26-2022 BP CONTROLLED (<130/80) BP CONTROLLED (<130/80) [facility] Start: 09-26-2022 Hemoglobin A1c measurement Diabetes: Hemoglobin A1C [facility] Start: 06-22-2022 Influenza vaccination [facility] Start: 03-25-2022 3 comp foot exam completed DIABETIC FOOT EXAM [facility] Start: 12-25-2021 Hemoglobin A1c measurement HbA1C [facility] Start: 12-25-2021 Hemoglobin A1c/Hemoglobin.total in Blood HBA1C [facility] Start: 11-17-2021 Hepatitis B screening Urine Albumin:Creatinine Ratio [facility] Start: 10-22-2021 DEPRESSION ASSESSMENT DEPRESSION ASSESSMENT [facility] Start: 2018 Hepatitis B Vaccine (1 of 3 - Risk 3-dose series) Hepatitis B Vaccine (1 of 3 - Risk 3-dose series) [facility] Start: 2018 RSV Immunization for Adults (1 - Risk 60-74 years 1-dose series) RSV Immunization for Adults (1 - Risk 60-74 years 1-dose series) [facility] Start: 2018 RSV Vaccine (1 - 1-dose 60+ series) RSV Vaccine (1 - 1-dose 60+ series) [facility] Start: 2013 PROSTATE CANCER SCREENING DISCUSSION PROSTATE CANCER SCREENING DISCUSSION [facility] Start: 2013 Prostate specific antigen measurement Prostate Cancer Screening Discussion [facility] Start: 2008 SHINGRIX VACCINE (1 of 2) SHINGRIX VACCINE (1 of 2) [facility] Start: 2008 Zoster Vaccines (1 of 2) Zoster Vaccines (1 of 2) [facility] Start: 2003 COLOGUARD (FIT-DNA) COLOGUARD (FIT-DNA) [facility] Start: 2003 Colonoscopy COLONOSCOPY [facility] Start: 2003 COLORECTAL CANCER SCREENING COLORECTAL CANCER SCREENING [facility] Start: [address] COLONOGRAPHY [facility] Start: 2003 FECAL OCCULT BLOOD FECAL OCCULT BLOOD [facility] Start: 2003 Screening for malignant neoplasm of colon [facility] Start: 2003 SIGMOIDOSCOPY SIGMOIDOSCOPY [facility] Start: 1977 DTaP/Tdap/Td Vaccines (1 - Tdap) DTaP/Tdap/Td Vaccines (1 - Tdap) [facility] Start: 1977 Pneumococcal Vaccine: 50+ Years (1 of 2 - PCV) Pneumococcal Vaccine: 50+ Years (1 of 2 - PCV) [facility] Start: 1977 Urine microalbumin profile [facility] Start: 1976 ANNUAL PCP TEAM CHRONIC DISEASE VISIT ANNUAL PCP TEAM CHRONIC DISEASE VISIT [facility] Start: 1976 BP CONTROLLED (<130/80) BP CONTROLLED (<130/80) [facility] Start: 1976 Diabetes: Estimated Glomerular Filtration Rate for Kidney Health Diabetes: Estimated Glomerular Filtration Rate for [facility] Start: 1976 HEPATITIS C SCREENING HEPATITIS C SCREENING [facility] Start: 1976 Hepatitis C screening Hepatitis C Screening [facility] Start: 1976 HIV SCREENING HIV SCREENING [facility] Start: 1976 HIV screening HIV Screening [facility] Start: 1974 ONE PNEUMOVAX PRIOR TO AGE 65 ONE PNEUMOVAX PRIOR TO AGE 65 [facility] Start: 1970 Adult depression screening assessment DEPRESSION SCREENING [facility] Start: 1970 Depression Monitoring Depression Monitoring [facility] Start: 1968 Diabetic foot examination Diabetes: Foot Exam [facility] Start: 1968 Glaucoma screening Diabetes: Retinopathy Screening [facility] Start: 1968 Preventive dental service Diabetes: Dental Exam [facility] Start: 1964 PNEUMOCOCCAL (1 - PCV) PNEUMOCOCCAL (1 - PCV) [facility] Start: 1964 Pneumococcal vaccination Pneumococcal Vaccine (1 - PCV) [facility] Start: 1964 Pneumococcal Vaccine: 65+ (1 of 2 - PCV) Pneumococcal Vaccine: 65+ (1 of 2 - PCV) [facility] Start: 1963 COVID-19 VACCINE (#1) COVID-19 VACCINE (#1) [facility] Start: 1963 COVID-19 VACCINE (1) COVID-19 VACCINE (1) [facility] Start: 1959 MMR Vaccines (1 of 1 - Standard series) MMR Vaccines (1 of 1 - Standard series) [facility] Start: 03-05-1959 COVID-19 VACCINE (#1) COVID-19 VACCINE (#1) [facility] Start: 1960 Abdominal aortic aneurysm screening Abdominal Aortic Aneurysm Screening [facility] Start: 1958 Lipid panel Lipid Panel [facility] Start: 1960 Screening for malignant neoplasm of colon [facility] Comprehensive metabo lic 2000 panel - Serum or Plasma [facility] Lipid 1996 panel - S masoud or Plasma [facility] Thyroid stimulating hormone measurement [facility] Urine microalbumin/creatinine ratio measurement [facility] Vitamin D, 25-hydrox y measurement [facility] Immunizations Immunization Date Immunization Notes Care Provider Denia marshall 10-04-2018 influenza virus vaccine, unspecified formulation Camilla Villalobos MD Work Phone: [facility] Payers Date Payer Category Payer Self-pay 2023 Medicare MMO MEDICARE MMO [employer] HMO [id number] 2023-Present [phone] [address] [place] [address] HMO [id number] 2021 Commercial Managed C are - HMO [id number] 2021 Unknown 2021 Unknown [id number] 2021 Unknown [id number] 2019 Unknown [id number] Unknown [id number] Unknown [id number] Unknown [id number] Unknown [id number] Social History Date Type Detail Facility Start: 01-11-2011 End: 08-01-2024 Tobacco smoking status NHIS Ex-smoker [facility] Work Phone: End: 01-11-1986 History of tobacco use Current smoker [facility] Work Phone: Start: 01-11-2011 End: 12-23-2012 Tobacco use and exposure Smokeless tobacco non-user [facility] Work Phone: Start: 03-25-2021 Alcohol intake Current drinke r of alcohol (finding) [facility] Start: 12-05-2016 History SDOH Alcohol Comment Occ [facility] Start: 1960 Sex Assigned At Not on file C [facility] End: 01-11-1986 History of tobacco use Cigarette Smoker [facility] Start: 03-25-2021 End: 11-14-2022 Gender identity Not on file [facility] Start: 03-25-2021 End: 11-14-2022 History of Social function [facility] National Score (1-100), lower number is lower risk 51 [facility] Tobacco smoking status NHIS Tobacco smoking consumption unknown [facility] Start: 1960 Sex assigned at Male S [facility] Start: 05-22-2022 Sex Male (finding) [facility] Medical Equipment Procedure Code Equipment Code Equipment Origin al Text Equipment Identifier Dates 5 daily for insulin injections. [id number] Start: 03-25-2021 Comment on above: 5 daily for insulin injections. Blood Sugar Diagnostic (Onetouch Verio Test Strips) strip Start: 08-03-2022 Insulin Syr/Ndl U100 Half Enoch 0.5 mL 30 gauge x 5/16 syringe Start: 06-01-2022 Insulin Syringe-Needle U-100 (Bd Insulin Syringe Ultra-Fine) 1 mL 31 gauge x 5/16 syringe Start: 07-12-2022 Clinical Notes 04-23-2014 to 07-01-2025 Radu Tai, BALANCE CLERK - AIRCRAFT GENERAL REPAIR MECHANIC - 07/01/2025 10:30 AM Shakir Dexter - 07/01/2025 10:00 AM Moni Ruiz, AuD - 03/11/2025 9:30 AM EDTPatient InstructionsPatient Instructions Note Date & Type Note Facility 07-01-2025 History of Presen t illness Narrative [facility] - [address] [facility] [id number] Dept: [phone] Dept Loc: [phone] Assessment and Recommendations Edita was seen today for new patient. Diagnoses and all orders for this visit: Other infective acute otitis externa of right ear (Primary) - ciprofloxacin-dexAMETHasone (CiproDEX) otic suspension; Administer 4 drops into affected ear(s) 2 times daily for 7 days. Right ear impacted cerumen Right ear cerumen impaction successfully removed with instrumentation. Patient reported improvement in aural fullness and hearing. His right EAC appears irritated with bloody debris. Recommend treatment with Ciprodex and follow up if he develops any right ear symptoms. Continue to follow with audiology for management of hearing aids. Subjective: Patient: Edita Lizarraga is a 64 y.o. male HPI Edita Lizarraga is a 64 y.o. male who presents to clinic today for evaluation of right ear concerns. He was seen by audiology today for hearing aid maintenance and was noted to have abnormal findings in right EAC. He denies any ear pain or drainage but has sensation that right ear is plugged and his right sided hearing aid has not been working as well. No issues with the left ear. He denies any other concerns today. Review of Systems 14 point review of systems completed and all negative except as noted in HPI. Allergies[1] Current Medications[2] Medical History[3] Surgical History[4] Family History[5] Social History Tobacco Use Smoking status: Not on file Smokeless tobacco: Not on file Substance Use Topics Alcohol use: Not on file Objective: There were no vitals taken for this visit. Physical Exam General: Patient is not in acute distress. Appearance: Patient is well-developed. Eyes: Conjunctiva/sclera: Conjunctivae normal. Pupils: Pupils are equal, round, and reactive to light. HENT: Ears: Microscope brought in for exam. Bilateral external ears normal. Right EAC impacted with cerumen/bloody debris, unable to visualize TM. Left EAC normal, TM clear with normal middle ear landmarks. See procedure note below. Pulmonary: Effort: Pulmonary effort is normal. No respiratory distress. Breath sounds: No stridor. Musculoskeletal: Head: Normocephalic and atraumatic. Neck: Full passive range of motion without pain, neck supple. Skin: General: Skin is warm and dry. Findings: No erythema or rash. Neurological: Cranial Nerves: No cranial nerve deficit. Sensory: No sensory deficit. Coordination: Coordination normal. Extremities: No significant peripheral edema or varicosities Psychiatric: Mood and Affect: Mood and affect normal. Cognition and Memory: Cognition and memory normal. Procedure Note: Cerumen Removal Right tympanic membranes could not be visualized due to cerumen impaction. Verbal informed consent obtained from the patient to proceed with bedside cerumen disimpaction. The microscope was brought into the field for the procedure. The cerumen was removed from the right side using a looped curette as well as suction. Once the cerumen was removed the R TM was visualized and was normal. The right EAC was noted to have mild irritation and bloody debris. Patient tolerated the procedure well. [1] No Known Allergies [2] Current Outpatient Medications Medication Sig Dispense Refill ciprofloxacin-dexAMETHasone (CiproDEX) otic suspension Administer 4 drops into affected ear(s) 2 times daily for 7 days. 7.5 mL 0 No current facility-administered medications for this visit. [3] No past medical history on file. [4] No past surgical history on file. [5] No family history on file. documented in this encounter [facility] 07-01-2025 History of Presen t illness Narrative HEARING AID CHECK/MAINTENANCE Name: Edita Lizarraga : 1960 Age: 64 y.o. Edita Lizarraga was seen in Audiology today for a hearing aid check/maintenance appointment. Programmed in [place] 12. Hearing Aid Information: Right: Layla [email or web address] AI 12 HAZEL-RT SN: [id number] 4M immunology teacher 7mm open dome Left: [employer] AI 12 HAZEL-RT SN: [id number] 4M immunology teacher 7mm open dome Basket Hand Braider: Standard 2.0 SN: [id number] Warranty: 05/05/2028 Chief Complaint: Right hearing aid is fading in/out and he has been struggling to hear lately. He also noticed some blood in his right ear. Visit Notes: Otoscopic Evaluation: External ear exam: Normal Internal ear exam: Right Ear: Abnormal red flesh like obstruction in external ear canal. Could not visualize tympanic membrane. Left Ear: Normal external ear canal. Tympanic membrane intact with normal landmarks. Recommended patient see an ENT provider, he was able to see PAXTON Jean, same day. See separate note for appointment details. Programming Ran self check and results showed the right immunology teacher failed and left microphone failed. Cleaned both hearing aids by replacing domes, filters, brushing/vacuuming microphone ports. Subjective listening check improved for the left hearing aid, no change in right hearing aid. Replaced right immunology teacher (under warranty) and hearing aid is now working. Ran self check again and all components passed. Reviewed brushing the microphones with patient (he was brushing the two side microphones but not the top one). I will keep him on our [place] list and let him know if/when we are scheduling other days to go out to the office. Recommendations: Follow up as needed. German Valverde, [facility] Clinical Doctor of Audiology documented in this encounter [facility] 03-11-2025 History of Presen t illness Narrative HEARING AID CHECK/MAINTENANCE Name: Edita Liazrraga : 1960 Age: 64 y.o. Edita Lizarraga was seen in Audiology today for a hearing aid check/maintenance appointment. Hearing Aid Information: Right: Layla [employer] AI 12 HAZEL-RT SN: [id number] 4M immunology teacher 7 mm open dome Left: Layla Victorina AI 12 HAZEL-RT SN: [id number] 4M immunology teacher 7 mm open dome Basket Hand Braider: Starlink Basket Hand Braider 2.0 SN: [id number] Warranty: 05/05/2028 Programmed: [facility] CHIEF COMPLAINT: No main concerns VISIT NOTES: He is happy with the devices and the sound quality. He states he is hearing things that he hasn't in some time and that he is doing well with them. Demonstrated how to change wax guards and domes to patient and his . Due to vision concerns, recommended for him to follow up routinely for maintenance and we can change the wax guards/domes in office. Provided them with extra supplies to have at home should they need to change them. He is still experiencing some issues with dizziness, particularly when laying down flat. Provided him with Cawthorne exercises for him to try at home. Recommended referral for vestibular therapy and/or VNG testing but he is not interested in that at this time. He will be sent some resources for him to try at home to help with the dizziness. RECOMMENDATIONS: Follow up in 3-4 months for routine maintenance or sooner if needed. He will be contacted to set up that appointment once days in [facility] have been established. Kirt Maravilla. CCC-A, CH-TM Clinical Doctor of Audiology Board Certified, Tinnitus Management documented in this encounter [facility] 03-11-2025 Instructions Ariana Ruiz, Shakir - 03/11/2025 9:30 AM EDT Cawthorne Exercises These exercises are to be carried out for 15 minutes twice a day, increasing to 30 minutes. Master one task prior to moving to the next task. Eye Exercises: Look up, then down - at first slowly, then quickly - 20 times Look from one side to the other - at first slowly, then quickly - 20 times Focus on finger at arm's length moving one foot closer and back again - 20 times Head Exercises: Bend head forward, then backward with eyes open - slowly, later quickly - 20 times Turn head from one side to other side - slowly, then quickly - 20 times As dizziness decreases, these exercises should be done with eyes closed. Sitting: While sitting shrug shoulders - 20 times Turn shoulders to right, then to left - 20 times Bend forward and crab picker objects from ground and sit up - 20 times Standing: Change from sitting to standing and back again - 20 times with eyes open Repeat with eyes closed Throw a small rubber ball from hand to hand above eye level. Throw ball from hand to hand under one knee Moving About: Walk across room with eyes open, then closed - 10 times Walk up and down a slope with eyes open, then closed - 10 times Walk up and down steps with eyes open, then closed - 10 times Any game involving stooping, stretching, and turning (ex: bowling, basketball) is good Note: The earlier and more regularly these exercises are practiced, the faster and more likely complete the recovery. References Denise ORELLANA. The rationale and technique of head exercises in the treatment of vertigo. Acta Otorhinolaryngol [place]. 1979;3(3):370-84. Marc MCKNIGHT. Canalith repositioning maneuver. Otolaryngol Head Neck Surg. 1994;111(5):691-692. documented in this encounter [facility] 02-18-2025 History of Presen t illness Narrative HEARING AID FITTING Edita Lizarraga was seen today to be fit with new hearing aid(s). DEVICE INFORMATION: Hearing Aid Information: Right: [employer] AI 12 HAZEL-RT SN: [id number] 4M immunology teacher 7 mm open dome Left: Layla Victorina AI 12 HAZEL-RT SN: [id number] 4M immunology teacher 7 mm open dome Basket Hand Braider: Starlink Basket Hand Braider 2.0 SN: [id number] Warranty: 05/05/2028 Programmed: [employer] TRIAL PERIOD END DATE: 04/20/2025 FITTING AND FINE TUNING: Initial physical fit was good bilaterally. Aid(s) were not verified via real ear speechmapping measures using the prescriptive fitting formula. Set to experience level #3. Increased overall gain by 1 click and then decreased low frequency gain by 3 clicks due to report that his own voice was too echoy. Programs created and explained when and how to utilize: Normal RiGHT BRAiN MEDiA Manual controls were set for on board use of volume/program changes: RIGHT: volume control LEFT: program control Edita Lizarraga was pleased with the sound quality of the aids following programming adjustments. COUNSELING/EDUCATION: Mr. Lizarraga was educated on care and use of aid(s) and the 3 years loss and damage warranty and 3 years periodicals library assistant repair warranty. He was given appropriate cleaning tools and education manual/s provided by the periodicals library assistant. Edita Lizarraga was able to demonstrate proper insertion/removal of hearing aid(s), insertion/removal of the battery OR insertion/removal from flight engineer performance qualified, cleaning techniques, and use of VC &/or program button . Devices were successfully to connected Edita Lizarraga Bluetooth enabled device ([employer]). [employer] antolin was downloaded and hearing aid(s) were successfully paired. Reviewed use of antolin for volume/program changes and streaming capabilities. Provided patient with periodicals library assistant's technical support number to contact if any issues arise. Realistic expectations and effective communication strategies were reviewed. [id number] at a 4-6 foot maximum distance Reduced background noise Speech at normal volume and slower rate Good lighting IMPRESSIONS/RECOMMENDATIONS: Edita Lizarraga expressed understanding to all topics discussed and reported good fit and sound quality to devices. Edita Lizarraga was schedule for a follow up appointment in 3 weeks but was instructed to call/return sooner if needed. Patient paid remaining balance of $1390.00 today. German Maravilla CH-TM Clinical Doctor of Audiology Board Certified, Tinnitus Management documented in this encounter [facility] 02-04-2025 History of Presen t illness Narrative HEARING AID CONSULTATION Name: Edita Lizarraga : 1960 Age: 64 y.o. Date of Consultation: February 04, 2025 HISTORY: Reason for visit: Mr. Lizarraga is seen for a hearing aid consultation/sound demonstration and to discuss hearing aid options. Patient reports difficulty understanding speech in all situations and has a history right sided horizontal canal BPPV. He went to another provider to see if he works with his insurance for hearing aid coverage ([employer]) but due to the cost of those devices, he is not interested in returning there. Hearing Aid History: no previous amplification use PREVIOUS AUDIOGRAM: Obtained from [facility] on 01/07/2025. Results indicate normal sloping to severe SNHL bilaterally. PATIENT EDUCATION: Discussed differences in technology level and styles. Explained streaming capabilities of the hearing aids and the antolin. Reviewed pricing structure for battery operated vs. rechargeable options. Reviewed audiology department policies and warranty coverage details. Discussed how binaural amplification may help with his dizziness, tinnitus and memory concerns as well. RECOMMENDATIONS: Proceed with binaural amplification. Patient is in agreement to the recommendation of purchasing a set of [employer] devices. Patient paid the $200 deposit and is aware of the remaining balance of $1390 due at the time of fitting. Questions were addressed and the patient was encouraged to contact the office should concerns arise. Patient was scheduled for a hearing aid fitting appointment for 2 weeks. German Maravilla CH-TM Clinical Doctor of Audiology Board Certified, Tinnitus Management documented in this encounter [facility] 02-04-2025 Note HEARING AID CONSULTA TION Name: Edita Lizarraga : 1960 Age: 64 y.o. Date of Consultation: February 04, 2025 HISTORY: Reason for visit: Mr. Lizarraga is seen for a hearing aid consultation/sound demonstration and to discuss hearing aid options. Patient reports difficulty understanding speech in all situations and has a history right sided horizontal canal BPPV. He went to another provider to see if he works with his insurance for hearing aid coverage ([employer]) but due to the cost of those devices, he is not interested in returning there. Hearing Aid History: no previous amplification use PREVIOUS AUDIOGRAM: Obtained from [facility] on 01/07/2025. Results indicate normal sloping to severe SNHL bilaterally. PATIENT EDUCATION: Discussed differences in technology level and styles. Explained streaming capabilities of the hearing aids and the antolin. Reviewed pricing structure for battery operated vs. rechargeable options. Reviewed audiology department policies and warranty coverage details. Discussed how binaural amplification may help with his dizziness, tinnitus and memory concerns as well. RECOMMENDATIONS: Proceed with binaural amplification. Patient is in agreement to the recommendation of purchasing a set of [employer] devices. Patient paid the $200 deposit and is aware of the remaining balance of $1390 due at the time of fitting. Questions were addressed and the patient was encouraged to contact the office should concerns arise. Patient was scheduled for a hearing aid fitting appointment for 2 weeks. Kirt Maravilla. RICKY, - Clinical Doctor of Audiology Board Certified, Tinnitus Management [facility] 01-29-2025 Telephone encounter Note Sent Work Market message to schedule appt in [facility] on the . [facility] Work Phone: 01-29-2025 Miscellaneous Notes Sent [email or web address] message to schedule appt in [facility] on the . Name of Caller: Edita Contact Reason for Appointment: Pt states he would like to be seen sooner then his appt. Please advise. Office Name: Ent documented in this encounter [facility] 01-27-2025 Telephone encounter Note Name of Caller: Edita Contact Reason for Appointment: Pt states he would like to be seen sooner then his appt. Please advise. Office Name: Ent [facility] 01-07-2025 History of Presen t illness Narrative AUDIOMETRIC EVALUATION Name: Edita Lizarraga : 1960 Age: 64 y.o. Date of Evaluation: January 07, 2025 HISTORY: Reason for visit: Mr. Lizarraga is seen today for a comprehensive audiological evaluation. Patient reports possible hearing loss that could be worse in the right ear. He reports constant ringing type tinnitus that is louder in the right ear. He also reports onset of spinning type dizziness that has been present for the last 4 weeks. He reports symptoms to be worse when laying flat and bending over. He states the spinning sensations can last up to 4-5 minutes at a time. Denies: otalgia, aural pressure/fullness, history of noise exposure, family history of hearing loss, history of otologic surgery EVALUATION: See Audiogram and Immittance results under Media. RESULTS: Otoscopic Evaluation: External ear exam: Normal Internal ear exam: normal TM's and external ear canals both ears Immittance via [employer] AT235: Immittance Measures: 226 Hz Right Ear: Type A, indicating normal middle ear function and mobility. Left Ear: Type A, indicating normal middle ear function and mobility. Reflexes and Reflex Decay: Ipsilateral Reflexes (1000-4000Hz): Probe/Stimulus Right Ear: DNT, due to report of tinnitus/hyperacusis Probe/Stimulus Left Ear: DNT, due to report of tinnitus/hyperacusis Audiometry: Test Technique: Standard Audiometry} via [employer] under insert earphones with use of bone oscillator. Reliability: good Pure Tone Audiometry: Normal sloping to severe sensorineural hearing loss bilaterally. There is no previous audiogram on file and no significant asymmetry in thresholds recorded. Speech Audiometry (via live female voice, 25-words unless noted; M=masked): Right Ear: Speech Tree Tapping Laborer Threshold (SRT) was obtained at 40 dBHL. Word recognition was obtained at 96% at 75 dB HL. Left Ear: Speech Tree Tapping Laborer Threshold (SRT) was obtained at 40 dBHL. Word recognition was obtained at 100% at 75 dB HL. Benign Paroxysmal Positional Vertigo (BPPV) Evaluation EVALUATION: modified positions used due to lumbar restrictions Denise-Hallpike Left: horizontal nystagmus present. Suppression noted with fixation. Denise-Hallpike Right: horizontal nystagmus present. Suppression noted with fixation. Head-Roll Left: negative Head-Roll Right: horizontal nystagmus present. Suppression noted with fixation when changing positions back to supine. RESULTS: Today's test results suggest right sided horizontal canalithiasis, and patient was treated with a logroll maneuver. Patient tolerated procedure well. Post hallpike was negative. IMPRESSIONS: In regards to his hearing, there is a normal sloping to severe symmetrical sensorineural hearing loss. In terms of the dizziness, right sided benign paroxysmal positional vertigo in the horizontal canal was recorded and treated with an office maneuver (logroll). PATIENT EDUCATION: Mr. Lizarraga was counseled with regard to the findings. Post-treatment limitations were discussed (avoid head movements and sleep sitting at a 45 degree angle for the next 24 hours, avoid sleeping on affected side for one week). Mr. Lizarraga was counseled with regard to the findings of his hearing test. Results and recommendations were discussed. Discussed binaural amplification and recommended he contact his insurance company for potential hearing aid benefits. According to his insurance card he does have benefits under true hearing and provided him with a list of providers in the area that excepted insurance benefit. Questions were addressed and the patient was encouraged to contact the office should concerns arise. RECOMMENDATIONS: Follow up with referring provider.. Consider binaural amplification. Contact insurance company for potential benefits and provider list given. Return in 3 weeks for repositioning if needed. Repeat audiogram every year, or sooner if changes are noted. Kirt Maravilla. CCC-A, CH-TM Clinical Doctor of Audiology Board Certified Degree of Hearing Sensitivity dB Range Within Normal Limits (WNL) 0 - 20 Slight 25 Mild 26 - 40 Moderate 41 - 55 Moderately-Severe 56 - 70 Severe 71 - 90 Profound 91 + OVALLE TM Tympanic Membrane WNL Within Normal Limits [facility] Hearing Aid SNHL Sensorineural Hearing Loss CHL Conductive Hearing Loss NIHL Noise-Induced Hearing Loss ECV Ear Canal Volume documented in this encounter [facility] 01-07-2025 Instructions Shakir Silva - 01/07/2025 11:00 AM EDT The below company(ies) are credentialed through various insurance plans to provide hearing aids for patients. Please contact the number(s) below if interested in pursuing hearing aids to determine if they are in network with your insurance. 1. [employer] [facility] [place] - Dr. Gary Griffin [place] Location: [address] [place] [address], [address] [place] [address] [place] Location: [address] [place] [phone] Hearing aid services are offered at [facility] although we are not credentialed to bill insurance for hearing aids. Hearing aids and services are only billable to the patient. Audiologists at [facility] are available to answer any questions at [phone], option 5. Benign paroxysmal positional vertigo (BPPV) is the most common disorder of the inner ear s vestibular system, which is a vital part of maintaining balance. BPPV is benign, meaning that it is not life-threatening nor generally progressive. BPPV produces a sensation of spinning called vertigo that is both paroxysmal and positional, meaning it occurs suddenly and with a change in head position. Why does BPPV cause vertigo? The vestibular organs in each ear include the utricle, saccule, and three semicircular canals. The semicircular canals detect rotational movement. They are located at right angles to each other and are filled with a fluid called endolymph. When the head rotates, endolymphatic fluid lags behind because of inertia and exerts pressure against the cupula, the sensory receptor at the base of the canal. The receptor then sends impulses to the brain about the head s movement. BPPV occurs as a result of otoconia, tiny crystals of calcium carbonate that are a normal part of the inner ear s anatomy, detaching from the otolithic membrane in the utricle and collecting in one of the semicircular canals. When the head is still, gravity causes the otoconia to clump and settle. When the head moves, the otoconia shift. This stimulates the cupula to send false signals to the brain, producing vertigo and triggering nystagmus (involuntary eye movements). Symptoms In addition to vertigo, symptoms of BPPV include dizziness (lightheadedness), imbalance, difficulty concentrating, and nausea. Activities that bring on symptoms can vary in each person, but symptoms are precipitated by changing the head s position with respect to gravity. With the involvement of the posterior semicircular canal in classic BPPV, common problematic head movements include looking up, or rolling over and getting out of bed. BPPV may be experienced for a very short duration or it may last a lifetime, with symptoms occurring in an intermittent pattern that varies by duration, frequency, and intensity. It is not considered to be intrinsically lifethreatening. However, it can be tremendously disruptive to a person s work and social life, as well as pose a health hazard due to an increased risk of falls associated with dizziness and imbalance. Causes BPPV is the most common vestibular disorder; 2.4% of all people will experience it at some point in their lifetimes BPPV accounts for at least 20% of diagnoses made by physicians who specialize in dizziness and vestibular disorders, and is the cause of approximately 50% of dizziness in older people. The most common cause of BPPV in people under age 50 is head injury and is presumably a result of concussive force that displaces the otoconia. In people over age 50, BPPV is most commonly idiopathic, meaning it occurs for no known reason, but is generally associated with natural age-related degeneration of the otolithic membrane. BPPV is also associated with migraine and ototoxicity. Viruses affecting the ear (such as those causing vestibular neuritis) and M ni re s disease are significant but unusual causes. Occasionally BPPV follows surgery as a result of the trauma on the inner ear during the procedure combined with a prolonged supine (laying down face-up) position. BPPV may also develop after long periods of inactivity. Diagnosis BPPV is diagnosed based on medical history, physical examination, the results of vestibular and auditory (hearing) tests, and possibly lab work to rule out other diagnoses. Vestibular tests include the Wichita-Hallpike maneuver and the Supine Roll test. These tests allow the provider to observe the nystagmus elicited in response to a change in head position. The problematic semicircular canal can be identified based on the characteristics of the observed nystagmus. A physician may also order radiographic imaging such as a magnetic resonance imaging scan (MRI) to rule out other problems such as a stroke or brain tumor, but such scans are not helpful is in diagnosing BPPV. Treating BPPV with in-office particle repositioning head maneuvers Recommended treatment for most forms of BPPV employs particle repositioning head maneuvers that move the displaced otoconia out of the affected semicircular canal. These maneuvers involve a specific series of patterned head and trunk movements that can be performed in a health care provider s office in about 15 minutes. Maneuvers for posterior canal BPPV Particle repositioning head maneuvers are considered to be more effective than medication or other forms of exercise-based therapy in treating posterior canal BPPV. However, even with successful treatment with such maneuvers, BPPV recurs in about one-third of patients after one year, and in about 50% of all patients treated after five years. Post-Treatment Limitations: 1. Keep head upright, avoid head movements like yes/no for 24 hours. Use your trunk to move and bring items up to eye level. 2. Sleep upright on a recline for the next 24 hours. Avoid sleeping on the treated side for at least a week. 3. Contact the Audiology Department at [phone] within 10-14 days for repeat repositioning, if symptoms persist. documented in this encounter [facility] 01-07-2025 Note AUDIOMETRIC EVALUATI ON Name: Edita Lizarraga : 1960 Age: 64 y.o. Date of Evaluation: January 07, 2025 HISTORY: Reason for visit: Mr. Lizarraga is seen today for a comprehensive audiological evaluation. Patient reports possible hearing loss that could be worse in the right ear. He reports constant ringing type tinnitus that is louder in the right ear. He also reports onset of spinning type dizziness that has been present for the last 4 weeks. He reports symptoms to be worse when laying flat and bending over. He states the spinning sensations can last up to 4-5 minutes at a time. Denies: otalgia, aural pressure/fullness, history of noise exposure, family history of hearing loss, history of otologic surgery EVALUATION: See Audiogram and Immittance results under Media. RESULTS: Otoscopic Evaluation: External ear exam: Normal Internal ear exam: normal TM's and external ear canals both ears Immittance via [employer] AT235: Immittance Measures: 226 Hz Right Ear: Type A, indicating normal middle ear function and mobility. Left Ear: Type A, indicating normal middle ear function and mobility. Reflexes and Reflex Decay: Ipsilateral Reflexes (1000-4000Hz): Probe/Stimulus Right Ear: DNT, due to report of tinnitus/hyperacusis Probe/Stimulus Left Ear: DNT, due to report of tinnitus/hyperacusis Audiometry: Test Technique: Standard Audiometry} via Afluentao under insert earphones with use of bone oscillator. Reliability: good Pure Tone Audiometry: Normal sloping to severe sensorineural hearing loss bilaterally. There is no previous audiogram on file and no significant asymmetry in thresholds recorded. Speech Audiometry (via live female voice, 25-words unless noted; M=masked): Right Ear: Speech Tree Tapping Laborer Threshold (SRT) was obtained at 40 dBHL. Word recognition was obtained at 96% at 75 dB HL. Left Ear: Speech Tree Tapping Laborer Threshold (SRT) was obtained at 40 dBHL. Word recognition was obtained at 100% at 75 dB HL. Benign Paroxysmal Positional Vertigo (BPPV) Evaluation EVALUATION: modified positions used due to lumbar restrictions Wichita-Hallpike Left: horizontal nystagmus present. Suppression noted with fixation. [place]ichita-Hallpike Right: horizontal nystagmus present. Suppression noted with fixation. Head-Roll Left: negative Head-Roll Right: horizontal nystagmus present. Suppression noted with fixation when changing positions back to supine. RESULTS: Today's test results suggest right sided horizontal canalithiasis, and patient was treated with a logroll maneuver. Patient tolerated procedure well. Post hallpike was negative. IMPRESSIONS: In regards to his hearing, there is a normal sloping to severe symmetrical sensorineural hearing loss. In terms of the dizziness, right sided benign paroxysmal positional vertigo in the horizontal canal was recorded and treated with an office maneuver (logroll). PATIENT EDUCATION: Mr. Lizarraga was counseled with regard to the findings. Post-treatment limitations were discussed (avoid head movements and sleep sitting at a 45 degree angle for the next 24 hours, avoid sleeping on affected side for one week). Mr. Lizarraga was counseled with regard to the findings of his hearing test. Results and recommendations were discussed. Discussed binaural amplification and recommended he contact his insurance company for potential hearing aid benefits. According to his insurance card he does have benefits under [employer] and provided him with a list of providers in the area that excepted insurance benefit. Questions were addressed and the patient was encouraged to contact the office should concerns arise. RECOMMENDATIONS: Follow up with referring provider.. Consider binaural amplification. Contact insurance company for potential benefits and provider list given. Return in 3 weeks for repositioning if needed. Repeat audiogram every year, or sooner if changes are noted. German Maravilla CCC-A, -TM Clinical Doctor of Audiology Board Certified Degree of Hearing Sensitivity dB Range Within Normal Limits (WNL) 0 - 20 Slight 25 Mild 26 - 40 Moderate 41 - 55 Moderately-Severe 56 - 70 Severe 71 - 90 Profound 91 + OVALLE TM Tympanic Membrane WNL Within Normal Limits [facility] SNHL Sensorineural Hearing Loss CHL Conductive Hearing Loss NIHL Noise-Induced Hearing Loss ECV Ear Canal Volume [facility] 12-22-2024 Telephone encounter Note Rescheduled for [facility] [employer] Work Phone: 12-22-2024 Miscellaneous Notes Rescheduled for [facility] Name of Caller: Edita Contact Reason for Appointment: Patient called back in stating he just scheduled an appointment but wanted to see if he was able to schedule with SHAKIR Ruiz as he has a friend that sees her and highly recommended her stating he just needs to be seen for gradual hearing problems due to age. Please be advised Office Name: [facility] documented in this encounter [facility] 12-19-2024 Telephone encounter Note Name of Caller: Edita Contact Reason for Appointment: Patient called back in stating he just scheduled an appointment but wanted to see if he was able to schedule with SHAKIR Ruiz as he has a friend that sees her and highly recommended her stating he just needs to be seen for gradual hearing problems due to age. Please be advised Office Name: [facility] 03-06-2024 Telephone encounter Note [facility] 03-06-2024 Miscellaneous Notes documented in this encounter [facility] 09-03-2023 Miscellaneous Notes Sent to scanning. Encounter Closed. Received Eye Exam Report from [facility] Updated. Placed in provider's inbox for review. Route to [place] for scanning. documented in this encounter [facility] 09-04-2022 Miscellaneous Notes Requester: Pharmacy Last Visit in Endocrinology: Provider name: Camilla Villalobos MD , Date 09/26/2021 Next Scheduled Appt in Endo: Visit date not found Last Refill: 09/27/21 Number of Refills given: 3 PSS NOTE: Patient needs scheduled appointment. Last seen on 09/26/21 was supposed to follow up in 6 months. No appointment scheduled. SENT [employer] MESSAGE TO SCHEDULE. WILL SEND 90 DAY. Requested Prescriptions Pending Prescriptions Disp Refills insulin NPH injection (HumuLIN N,NovoLIN N) [Pharmacy Med Name: HUMULIN N VIAL 10ML 100U/ML] 80 mL 0 Sig: INJECT 28 UNITS UNDER THE SKIN AT BREAKFAST AND 50 UNITS AT BEDTIME Please review and advise. Laura Katz Ma P documented in this encounter [facility] 03-30-2022 Miscellaneous Notes I sent him a [employer] message. Please review. documented in this encounter [facility] 03-23-2022 Miscellaneous Notes rx sent. Oarrs reviewed Requester: Pharmacy Last Visit in Endocrinology: Provider name: Camilla Villalobos MD , Date 09/26/2021 Next Scheduled Appt in Endo: 03/29/2022 Last Refill: 02/22/2021 Number of Refills given: 3 Pending Prescriptions Disp Refills GABAPENTIN 600 MG TABLET 270 tablet 3 Sig: Take 1 tablet by mouth three times daily. YAZMIN: No Please review and advise. Lorin Bowman MA documented in this encounter [facility] 03-17-2022 Miscellaneous Notes Requester: Pharmacy Last Visit in Endocrinology: Provider name: Camilla Villalobos MD , Date 09/26/2021 Next Scheduled Appt in Endo: 03/29/2022 Last Refill: 03/22/21 Number of Refills given: 3 Pending Prescriptions Disp Refills FENOFIBRATE 160 MG TABLET 90 tablet 3 Sig: TAKE 1 TABLET DAILY YAZMIN: Yes SIMVASTATIN 20 MG TABLET 90 tablet 3 Sig: TAKE 1 TABLET DAILY AT BEDTIME YAZMIN: Yes VERAPAMIL ER (SR) 240 MG TABLET,EXTENDED RELEASE 180 tablet 3 Sig: TAKE 1 TABLET TWICE A DAY YAZMIN: Yes Please review and advise. Fifi Moeller LPN documented in this encounter [facility] 03-03-2022 Miscellaneous Notes Requester: Pharmacy Last Visit in Endocrinology: Provider name: Camilla Villalobos MD , Date 09/26/2021 Next Scheduled Appt in Endo: 03/29/2022 Last Refill: 03/08/2021 Number of Refills given: 3 Pending Prescriptions Disp Refills METFORMIN ER 500 MG TABLET,EXTENDED RELEASE 24 HR 360 tablet 3 Sig: TAKE 2 TABLETS TWICE A DAY YAZMIN: Yes Please review and advise. Lorin Bowman MA documented in this encounter [facility] 02-15-2022 Miscellaneous Notes Reviewed. Received blood glucose readings from 03/25/21 - 01/01/22 [address] in PCP inbox for review. Please advise. Thanks, documented in this encounter [facility] 02-09-2022 Miscellaneous Notes Reviewed. Received Eye Exam Report from [facility] Updated. Placed in provider's inbox for review. Route to [place] for scanning. documented in this encounter [facility] 01-24-2022 Miscellaneous Notes Reviewed. Eye exam on your desk for review. documented in this encounter [facility] 03-25-2021 History of Past i llness Narrative Problem Noted Date Resolved Date Obesity, Class III, BMI 40-49.9 (morbid obesity) 03/25/2021 02/16/2022 Bilateral hip pain 04/23/2014 11/19/2016 Hypertension 01/11/2011 04/24/2016 documented as of this encounter (statuses as of 03/03/2022) [facility] History of Past illness Narrative* Problem Noted Date Resolved Date Obesity, Class III, BMI 40-49.9 (morbid obesity) 03/25/2021 02/16/2022 Bilateral hip pain 04/23/2014 11/19/2016 Hypertension 01/11/2011 04/24/2016 documented as of this encounter (statuses as of 03/13/2022) [facility] History of Past illness Narrative* Problem Noted Date Resolved Date Obesity, Class III, BMI 40-49.9 (morbid obesity) 03/25/2021 02/16/2022 Bilateral hip pain 04/23/2014 11/19/2016 Hypertension 01/11/2011 04/24/2016 documented as of this encounter (statuses as of 03/17/2022) [facility] History of Past illness Narrative* Problem Noted Date Resolved Date Obesity, Class III, BMI 40-49.9 (morbid obesity) 03/25/2021 02/16/2022 Bilateral hip pain 04/23/2014 11/19/2016 Hypertension 01/11/2011 04/24/2016 documented as of this encounter (statuses as of 03/23/2022) [address]04-2021 History of Past illness Narrative* Problem Noted Date Resolved Date Obesity, Class III, BMI 40-49.9 (morbid obesity) 03/25/2021 02/16/2022 Bilateral hip pain 04/23/2014 11/19/2016 Hypertension 01/11/2011 04/24/2016 documented as of this encounter (statuses as of 03/30/2022) [facility] History of Past illness Narrative* Problem Noted Date Resolved Date Obesity, Class III, BMI 40-49.9 (morbid obesity) 03/25/2021 02/16/2022 Bilateral hip pain 04/23/2014 11/19/2016 Hypertension 01/11/2011 04/24/2016 documented as of this encounter (statuses as of 2022) [facility] History of Past illness Narrative* Problem Noted Date Resolved Date Obesity, Class III, BMI 40-49.9 (morbid obesity) 03/25/2021 02/16/2022 Bilateral hip pain 04/23/2014 11/19/2016 Hypertension 01/11/2011 04/24/2016 documented as of this encounter (statuses as of 09/19/2022) [facility] History of Past illness Narrative* Problem Noted Date Diagnosed Date Resolved Date Obesity, Class III, BMI 40-4 9.9 (morbid obesity) 03/25/2021 02/16/2022 Bilateral hip pain 04/23/2014 7 Hypertension 01/11/2011 04/24/2016 documented as of this encounter (statuses as of 05/18/2023) [address]-2021 History of Past illness Narrative* Problem Noted Date Diagnosed Date Resolved Date Obesity, Class III, BMI 40-4 9.9 (morbid obesity) 03/25/2021 02/16/2022 Bilateral hip pain 04/23/2014 7 Hypertension 01/11/2011 04/24/2016 documented as of this encounter (statuses as of 09/04/2023) [facility] History of Past illness Narrative* Problem Noted Date Resolved Date Bilateral hip pain 04/23/2014 11/19/2016 Hypertension 01/11/2011 04/24/2016 documented as of this encounter (statuses as of 01/24/2022) [facility] History of Past illness Narrative* Problem Noted Date Resolved Date Bilateral hip pain 04/23/2014 11/19/2016 Hypertension 01/11/2011 04/24/2016 documented as of this encounter (statuses as of 02/09/2022) [facility] History of Past illness Narrative* Problem Noted Date Resolved Date Bilateral hip pain 04/23/2014 11/19/2016 Hypertension 01/11/2011 04/24/2016 documented as of this encounter (statuses as of 02/15/2022) [facility] note* Diagnosis Mixed hyperlipidemia Hypertension Unspecified essential hypertension documented in this encounter [facility] note* Diagnosis Painful diabetic neuropathy (HCC) Type II or unspecified type diabetes mellitus with neurological manifestations, not stated as uncontrolled documented in this encounter [facility] note* Diagnosis Type 2 diabetes mellitus with retinopathy, with long-term current use of insulin, macular edema presence unspecified, unspecified laterality, unspecified retinopathy severity (HCC) documented in this encounter [facility] note* Diagnosis 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, with long-term current use of insulin, unspecified retinopathy severity (HCC) documented in this encounter [facility] note* Diagnosis Mixed hyperlipidemia documented in this encounter [facility] note* Diagnosis Hypertension Unspecified essential hypertension documented in this encounter [facility] note* Diagnosis Sensorineural hearing loss, bilateral- Primary Benign paroxysmal positional vertigo of right ear [facility] Diagnosis Sensorineural hearing loss, bilateral- Primary [facility] Diagnosis Sensorineural hearing loss, bilateral- Primary documented [facility] noteNo assessment information availableWhite [facility] Medical [facility] Work Phone: Evaluation note* Diagnosis Other infective acute otitis externa of right ear- Primary Right ear impacted cerumen Impacted cerumen [facility])No reason for referral information availablePelham Athletes' Performance Services Work Phone: Summary Purpose Family History No Family History Records Found Relationship Condition Age at Onset Recorded Date/T elsi father Hypertension Unknown Cardiac disease Unknown Myocardial infarction Unknown Advance Directives No Advanced Directives Records FoundDocuments on File Type Date Recorded Patient Public Health Staff Nurse Expl anation Advance Directive(s) Advance Directive(s) 06/24/2017 8:15 PM Chief Complaint and Reason for Visit Chief Complaint Admit Date 6 M FU June 24, 2025 11:43am Additional Source Comments (unrecognized sect ion and content) No Status Records FoundNo Status Records FoundNo Status Records FoundNo Status Records FoundNo Status Records FoundNo Status Records FoundNo Status Records Found INFORMATION SOURCE (unrecogn ized section and content) DATE CREATED AUTHOR 04/16/2018 [facility] DATE CREATED AUTHOR AUTHOR'S ORGANIZ ATION 04/16/2018 [facility] DATE CREATED AUTHOR AUTHOR'S ORGANIZ ATION 10/17/2019 [facility] DATE CREATED AUTHOR AUTHOR'S ORGANIZ ATION 09/04/2023 [facility] DATE CREATED AUTHOR AUTHOR'S ORGANIZ ATION 06/22/2024 [facility] DATE CREATED AUTHOR AUTHOR'S ORGANIZ ATION 06/24/2025 [facility] DATE CREATED AUTHOR AUTHOR'S ORGANIZ ATION 07/03/2025 [facility] Source Comments (unrecognize d section and content) In the event this informatio n is protected by the Federal Confidentiality of Alcohol and Drug Abuse Patient Records regulations: The Federal rules restrict any use of the information to criminally investigate or prosecute any alcohol or drug abuse patient.[facility] the event this information is protected by the Federal Confidentiality of Alcohol and Drug Abuse Patient Records regulations: The Federal rules restrict any use of the information to criminally investigate or prosecute any alcohol or drug abuse patient.[facility] HospitalIn the event this information is protected by the Federal Confidentiality of Alcohol and Drug Abuse Patient Records regulations: The Federal rules restrict any use of the information to criminally investigate or prosecute any alcohol or drug abuse patient.[facility] HospitalIn the event this information is protected by the Federal Confidentiality of Alcohol and Drug Abuse Patient Records regulations: The Federal rules restrict any use of the information to criminally investigate or prosecute any alcohol or drug abuse patient.[facility] HospitalIn the event this information is protected by the Federal Confidentiality of Alcohol and Drug Abuse Patient Records regulations: The Federal rules restrict any use of the information to criminally investigate or prosecute any alcohol or drug abuse patient.[facility] HospitalIn the event this information is protected by the Federal Confidentiality of Alcohol and Drug Abuse Patient Records regulations: The Federal rules restrict any use of the information to criminally investigate or prosecute any alcohol or drug abuse patient.[facility] HospitalIn the event this information is protected by the Federal Confidentiality of Alcohol and Drug Abuse Patient Records regulations: The Federal rules restrict any use of the information to criminally investigate or prosecute any alcohol or drug abuse patient.[facility] HospitalIn the event this information is protected by the Federal Confidentiality of Alcohol and Drug Abuse Patient Records regulations: The Federal rules restrict any use of the information to criminally investigate or prosecute any alcohol or drug abuse patient.[facility] HospitalIn the event this information is protected by the Federal Confidentiality of Alcohol and Drug Abuse Patient Records regulations: The Federal rules restrict any use of the information to criminally investigate or prosecute any alcohol or drug abuse patient.[facility] HospitalIn the event this information is protected by the Federal Confidentiality of Alcohol and Drug Abuse Patient Records regulations: The Federal rules restrict any use of the information to criminally investigate or prosecute any alcohol or drug abuse patient.[facility] HospitalIn the event this information is protected by the Federal Confidentiality of Alcohol and Drug Abuse Patient Records regulations: The Federal rules restrict any use of the information to criminally investigate or prosecute any alcohol or drug abuse patient.[facility] HospitalIn the event this information is protected by the Federal Confidentiality of Alcohol and Drug Abuse Patient Records regulations: The Federal rules restrict any use of the information to criminally investigate or prosecute any alcohol or drug abuse patient.[facility] HospitalIn the event this information is protected by the Federal Confidentiality of Alcohol and Drug Abuse Patient Records regulations: The Federal rules restrict any use of the information to criminally investigate or prosecute any alcohol or drug abuse patient.[facility] Reason for Visit (unrecogniz ed section and content) Reason Comments Diabetic Eye Exam [facility] Reason Comments Diabetic Eye Exam [facility] Reason Comments Blood Sugar Reading Reason Comments Refill Request Reason Onset Date Comments Refill Request 03/22/2022 Reason Comments Dilated Eye Exam Report [facility] Reason Onset Date Comments Appointment Request 12/19/2024 Reason Comments Audiology Services Reason Onset Date Comments Appointment 01/27/2025 Reason Comments New Patient Right ear Care Teams (unrecognized sec tion and content) Team Status: Active Member Role/Relationship Status Dates No Primary Care Physician Primary Care Provider Active Team Status: Inactive Member Role/Relationship Status Dates No Primary Care Physician Primary Care Provider Active Start: June 24, 2025 End: June 24, 2025 No Primary Care Physician Referring Provider Active Start: June 24, 2025 End: June 24, 2025 MELODIE Moody Attending Provider Active Start: June 24, 2025 End: June 24, 2025 Goals (unrecognized section and content) Goals may be documented in a n alternate section FOR RECORDS PERTAINING TO PATIENTS WHO ARE OR HAVE BEEN ENROLLED IN A CHEMICAL DEPENDENCY/SUBSTANCEABUSE PROGRAM, SOME INFORMATION MAY BE OMITTED. This clinical summary was aggregated from multiple sources. Caution should be exercised in using it in the provision of clinical care. This summary normalizes information from multiple sources, and as a consequence, information in this document may materially change the coding, format and clinical context of patient data. In addition, data may be omitted in some cases. CLINICAL DECISIONS SHOULD BE BASED ON THE PRIMARY CLINICAL RECORDS. [employer] [facility]. provides no warranty or guarantee of the accuracy or completeness of information in this document.
--- NOTE | 2025-10-09 14:28 | STRESSREP ---
Stress Test Report Pharmacologic myocardial perfusion stress test. Date Test Performed: 10/09/2025 [65]-year-old [male] with a history of [chest pain]. Resting EKG demonstrates [normal sinus rhythm, nonspecific ST-T wave abnormality, low precordial QRS voltage] with a rate of [78] bpm. Resting blood pressure is [162/76] mmHg. 0.4 mg of regadenoson was infused per usual protocol followed by rapid intravenous saline flush injection. Continuous EKG monitoring was performed. The maximum heart rate was [96] bpm which was [62]% of max impacted heart rate the maximum workload was [1] metabolic equivalent. There were no ST or T wave changes suggestive of ischemia during stress portion. No clinical angina is noted. The final blood pressure was [138/60]mmHg. Myocardial perfusion protocol. [15.0] mCi of technetium 99m sestamibi was injected at rest. 0.4 mg of regadenoson was infused per usual protocol. At peak infusion [45.0] mCi of technetium 99m sestamibi was injected stress images were obtained stress and rest images were reconstructed and compared in the short axis vertical long and horizontal long axis. Gated images were also obtained. Perfusion SPECT analysis: Review of the stress images demonstrate normal uptake of tracer noted in all areas of the myocardium. The resting images similar demonstrated normal uptake of tracer noted in all areas of the myocardium. No areas of reversibility are noted to suggest ischemia and no previous infarct is noted. Gated SPECT analysis: The gated ejection fraction is [61]%. Conclusion: [Normal] pharmacologic myocardial perfusion stress test without evidence of ischemia. [Normal] ejection fraction.
== END | disposition home or self-care (01) ==
LOC: CVS 06:29
PROVIDERS: Referring Provider Nurse Practitioner Gerontology; Visit Provider Nurse Practitioner Gerontology
DX: R07.9 Chest pain, unspecified (principal); R06.02 Shortness of breath; R53.83 Other fatigue; R42 Dizziness and giddiness
CPT/HCPCS: 78452; 93017; 93306; 93880; A9500; C8929; J2785